=== PATIENT | male | born 1980 | race Caucasian/White ===

== ENCOUNTER 2024-07-06 09:34 | Emergency (ER) | payer SELFPAY ==
[2024-07-06 09:49] VITALS: BP 154/100; PULSE 115; RESP 18; TEMP 36.7; O2SAT 97; BMI 29.2
--- NOTE | 2024-07-06 09:59 | EXP.UTC ---
Discharge Plan Disposition Patient Disposition: Home, Self-Care Condition: Good Prescriptions Prescriptions: New sulfamethoxazole-trimethoprim [Bactrim DS] 800-160 mg tablet 1 tab PO Q12H Qty: 20 0RF No Action metformin 500 mg tablet 500 mg PO DAILY Patient Comments: TAKE 2 TABLETS ORAL ROUTE 2 TIMES PER DAY Referrals Follow up/Referrals: Provider,Referral, MD [Primary Care Provider] - See instructions Activity Restrictions/Add. Instructions Additional Instructions/Restrictions: Tylenol Motrin as needed for pain Antibiotics as ordered If symptoms worsen or do not improve return Clinical Impressions Clinical Impression: Abscess of gluteal region Instructions Patient Instructions: Boil Print Language Print Language: Japanese Discharge ED [facility]Jade [facility] [place] HPI General Stated complaint: knot on lowerback Mode of Arrival: Ambulatory Source of Information: Patient Time Seen by Provider: 07/06/24 09:52 Description of Symptoms (Recalled from Triage Doc. by RN): CYST, RED AND PAINFUL ON LEFT INNER BUTTCHEEK, HAS FELT FEVERISH AT HOME THE LAST COUPLE DAYS HEENT Symptoms (Recalled from RN notes): No Resp Symptoms (Recalled from RN notes): No Skin Symptoms (Recalled from RN notes): Yes MS Symptoms (Recalled from RN notes): No Functional Status (Recalled from RN notes): WNL History of Present Illness Provider Complaint: 44-year-old male presents for an abscess to the left inner butt cheek and felt feverish for couple days Related Data Home Medications ?Medication ?Instructions ?Recorded ?Confirmed metformin 500 mg tablet 500 mg PO DAILY 07/06/24 07/06/24 Previous Rx's ?Medication ?Instructions ?Recorded sulfamethoxazole 800 1 tab PO Q12H #20 tabs 07/06/24 mg-trimethoprim 160 mg tablet (Bactrim DS) Allergies Allergy/AdvReac Type Severity Reaction Status Date / Time No Known Allergies Allergy Verified 07/06/24 09:51 Worker's Comp Is this a Worker's Comp case?: No [facility] Disclaimer: The information contained in this section may have been updated after the patient was seen, as this information can be updated by other users. Social History (Reviewed 07/06/24 @ 10:00 by Jade Gallegos ([facility]), DIAGNOSTIC SALES SPECIALIST) Smoking Status: Unknown if ever smoked alcohol intake: former current occupational status: employed Travel in the last 8 weeks: None ROS Obtained: Yes Systems reviewed as appropriate & no additional complaints except as documented Integumentary/Breasts Skin/Breast: Reports system reviewed and no additional complaints, except as documented, Reports as per HPI and Reports other (Abscess) Physical Exam General General appearance: alert and in no apparent distress ENT ENT exam: Present normal exam Respiratory Respiratory exam: Present normal lung sounds bilaterally Cardiovascular Cardiovascular exam: Present regular rate and normal rhythm Neurological Exam Neurological exam: Present alert and oriented X3 Skin Skin exam: Present warm Expanded Skin Exam Body image: 1. Red golf ball size indurated area. No drainage or pus pocket present Medical Decision Making Medical Records Medical records reviewed: Yes I reviewed the patient's medical records. Screening: Per USPSTF and CDC recommendations, given the prevalence of disease in our region, it is our hospital?s policy to screen for HIV and viral Hepatitis for all patients aged 18 and over and those with ongoing risk factors. Jeremy Inquiry Pt receiving controlled substance: No Vital Signs: 07/06/24 09:49 Temperature 98.1 F Temperature Source Oral Pulse Rate [Left Radial] 115 H Respiratory Rate 18 Blood Pressure [Left Arm] 154/100 H Blood Pressure Mean [Left Arm] 118 02 Sat by Pulse Oximetry 97
[2024-07-06 10:11] VITALS: BP 154/100; PULSE 115; RESP 18; TEMP 36.7
== END 2024-07-06 10:11 | disposition home or self-care (01) ==
PROVIDERS: Emergency Provider Nurse Practitioner Family
DX: L02.31 Cutaneous abscess of buttock (principal)
CPT/HCPCS: 99212; G0381

== ENCOUNTER 2024-07-08 09:35 | Inpatient (IN) | payer SELFPAY ==
[2024-07-08] VITALS (23 sets, daily range): BP systolic 111–154; BP diastolic 64–87; PULSE 85–125; RESP 16–20; TEMP 36.6–37.5; O2SAT 93–100; BMI 29.0; BMI 28.3
--- NOTE | 2024-07-08 09:48 | CT_ITS ---
FINAL REPORT TECHNIQUE: IV contrast enhanced exam. Coronal and sagittal reconstructions obtained and reviewed. This study was performed with techniques to keep radiation doses as low as reasonably achievable, (ALARA). Individualized dose reduction techniques using automated exposure control or adjustment of mA and/or kV according to the patient''s size were employed. CLINICAL HISTORY: eval rectal abscess COMPARISON: none FINDINGS: Abdomen: No acute density is seen within the lung bases. Solid organs are negative. There is a punctate hyperdensity in the proximal posterior gallbladder seen on image 47 which could represent a tiny polyp or stone measuring 3 mm. There is no biliary ductal dilatation. The bowel is negative. There is no adenopathy. Pelvis: The appendix is normal. Pelvic bowel loops are unremarkable. The bladder is normal. There is a large posterior perianal abscess predominantly containing air. The abscess extends into both the right and left medial gluteus subcutaneous tissues. The air component measures approximately 66 x 50 x 47 mm. There is suggestion of a small fistulous tract extending from the posterior anus to the abscess well-seen on sagittal images 57 through 59 with a tract measuring up to 24 mm in length and 4 mm in diameter. IMPRESSION: Large predominantly gas-filled perianal abscess associated with fistulous tract as above. No intra-abdominal abnormality identified Reviewed, Interpreted and Dictated by Rochelle Mora MD Transcribed by Belen Jacobo Authenticated and [facility]
--- NOTE | 2024-07-08 09:53 | ED_ITS ---
Discharge Plan Disposition Patient Disposition: Admitted Chief Complaint: Skin/Abscess/Foreign Body Prescriptions Prescriptions: No Action metformin 500 mg tablet 500 mg PO DAILY Patient Comments: TAKE 2 TABLETS ORAL ROUTE 2 TIMES PER DAY sulfamethoxazole-trimethoprim [Bactrim DS] 800-160 mg tablet 1 tab PO Q12H Qty: 20 0RF Referrals Follow up/Referrals: Provider,Referral, [Primary Care Provider] - See instructions Clinical Impressions Clinical Impression: Abscess, perirectal Instructions Patient Instructions: DI for Skin Abscess Print Language Print Language: Togolese Discharge ED Provider: Jai Hatch General Adult HPI General Chief complaint: Skin/Abscess/Foreign Body Stated complaint: cyst on buttox, pain Time Seen by Provider: 07/08/24 09:41 Mode of Arrival: Ambulatory Source of Information: Patient Limitations: No Limitations History of Present Illness HPI narrative: This is a 44-year-old male who presents with rectal pain for the past week. Presented to urgent treatment center where patient was prescribed oral antibiotics -Bactrim. Has been taking as prescribed however is having worsening pain. States that he is having difficulty walking and sitting because of the pain. States that it feels like it is moving to the other side of his rectum. Reports subjective fever in the mornings and evenings. Related Data Home Medications ?Medication ?Instructions ?Recorded ?Confirmed metformin 500 mg tablet 500 mg PO DAILY 07/06/24 07/06/24 Previous Rx's ?Medication ?Instructions ?Recorded sulfamethoxazole 800 1 tab PO Q12H #20 tabs 07/06/24 mg-trimethoprim 160 mg tablet (Bactrim DS) Allergies Allergy/AdvReac Type Severity Reaction Status Date / Time No Known Allergies Allergy Verified 07/06/24 09:51 [facility] Disclaimer: The information contained in this section may have been updated after the patient was seen, as this information can be updated by other users. Social History (Updated 07/06/24 @ 10:05 by Jade Gallegos ([facility]), BLENDER/BRAZE APPLICATOR) Smoking Status: Former smoker alcohol intake: former current occupational status: employed Travel in the last 8 weeks: None Have you lived/traveled outside US in past 30 days?: No Contact w/someone who lives/traveled outside US past 30 days?: No Exposure to someone with infectious disease in past 14 days?: No Do you have a fever (greater than 100.4 F or 38 C)?: No Have you tested positive for COVID-19: No Exposed to someone with COVID-19 in past 14 days?: No Do you have a sore throat?: No Do you have a cough?: No Do you have any weakness?: No Do you have any diarrhea?: No Are you experiencing any unusual bleeding?: No Do you have any muscle aches/pain?: Yes Do you have any abdominal pain?: No Are you experiencing loss of taste or smell?: No ROS Obtained: Yes All systems reviewed & no additional complaints except as documented Physical Exam General General appearance: alert and in no apparent distress Eye Eye exam: Present normal appearance, PERRL and EOMI Respiratory Respiratory exam: Present normal lung sounds bilaterally; Absent respiratory distress Cardiovascular Cardiovascular exam: Present regular rate and normal rhythm Abdominal Exam Abdominal exam: Present soft and distention; Absent tenderness, guarding or rebound Expanded Exam Comment: Extensive induration and, fluctuance, erythema to the perirectal region Extremities Exam Extremities exam: Present normal inspection Neurological Exam Neurological exam: Present alert and oriented X3 Skin Skin exam: Present warm and dry Medical Decision Making Medical Records Medical records reviewed: Yes I reviewed the patient's medical records. Screening: Per USPSTF and CDC recommendations, given the prevalence of disease in our region, it is our hospital?s policy to screen for HIV and viral Hepatitis for all patients aged 18 and over and those with ongoing risk factors. MR Comment: Urgent treatment center note from 07/06/2024 notable for presentation as noted above and prescription for Bactrim Jeremy Inquiry Pt receiving controlled substance: No Vital Signs: 07/08/24 09:37 07/08/24 09:41 07/08/24 10:40 Temperature 98.3 F Temperature Source Oral Pulse Rate 125 H 106 H Pulse Rate [Right] 85 Respiratory Rate 18 Blood Pressure 145/84 H 128/64 Blood Pressure [Right Arm] 145/84 H Blood Pressure Mean [Right Arm] 104 Blood Pressure Source [Right Arm] Automatic Cuff 02 Sat by Pulse Oximetry 98 96 97 Oxygen Delivery Method Room Air Room Air Room Air 07/08/24 11:00 Temperature Temperature Source Pulse Rate 107 H Pulse Rate [Right] Respiratory Rate Blood Pressure 122/75 Blood Pressure [Right Arm] Blood Pressure Mean [Right Arm] Blood Pressure Source [Right Arm] 02 Sat by Pulse Oximetry 96 Oxygen Delivery Method Room Air Lab Data Lab Results 07/08/24 09:55: WBC 16.3 H, RBC 5.67, Hgb 15.9, Hct 46.0, MCV 81.1, MCH 28.0, MCHC 34.6, RDW 12.0, Plt Count 216, MPV 9.9, Neut % (Auto) 81.1 H, Lymph % (Auto) 6.6 L, [place] % (Auto) 10.8 H, Eos % (Auto) 0.2, Baso % (Auto) 0.6, Neut # (Auto) 13.2 H, Lymph # (Auto) 1.1, [place] # (Auto) 1.8 H, Eos # (Auto) 0.0, Baso # (Auto) 0.1, PT 11.1, INR 0.99, Sodium 132 L, Potassium 4.6, Chloride 94 L, Carbon Dioxide 25, Anion Gap 17.6 H, BUN 18, Creatinine 0.80, Estimated Creat Clear 165, Estimated GFR 105, Est GFR ( Amer) 126, Glucose 349 H, Calcium 9.6, Total Bilirubin 3.3 H, AST 27, ALT 27, Alkaline Phosphatase 124, C-Reactive Protein 293.5 H, Total Protein 8.1, Albumin 4.5, Globulin 3.6 H, Albumin/Globulin Ratio 1.3 07/08/24 09:55 07/08/24 09:55 Orders (Tests/Meds): ED MEDICATIONS Generic Name Dose Route Start Last Admin Trade Name Freq PRN Reason Stop Dose Admin Vancomycin/PEG/NADA/Lysine/Water 1.75 gm in 350 mls @ 175 mls/hr 07/08/24 10:45 Vancomycin 1.75gm/350ml (Peg) Premix IV 07/08/24 12:44 ONCE ONE Ondansetron HCl 4 mg 07/08/24 11:14 07/08/24 11:18 Ondansetron 4mg/2ml Vial IV 07/08/24 11:15 4 mg ONCE ONE Administration Sodium Chloride 10 ml 07/08/24 10:13 07/08/24 10:14 Sodium Chloride 0.9% 10ml Syr (Rad Only) IV 08/07/24 10:12 10 ml NEEDED PRN Administration Maintain IV Site Discontinued Medications Generic Name Dose Route Start Last Admin Trade Name Freq PRN Reason Stop Dose Admin Acetaminophen 1,000 mg 07/08/24 09:47 07/08/24 10:05 Acetaminophen 500mg Tab PO 07/08/24 09:48 Not Given ONCE ONE Hydromorphone HCl 1 mg 07/08/24 09:47 07/08/24 10:04 Hydromorphone 2mg/Ml Syringe IV 07/08/24 09:48 1 mg ONCE ONE Administration Piperacillin Sod/Tazobactam 100 mls @ 200 mls/hr 07/08/24 10:37 07/08/24 11:24 Sod 4.5 gm/ Sodium Chloride IV 07/08/24 11:06 200 mls/hr ONCE ONE Administration Clindamycin Phosphate 600 mg in 50 mls @ 100 mls/hr 07/08/24 10:37 Clindamycin 600mg/50ml D5w Premix IV 07/08/24 11:06 ONCE ONE Iopamidol 75 ml 07/08/24 10:13 07/08/24 10:14 Iopamidol-370 (76%);100ml Bottle IV 07/08/24 10:14 75 ml ONCE ONE Administration Miscellaneous 1 each 07/08/24 10:45 Vancomycin Consult Request NOTAPPLIC 08/07/24 10:44 CONSULT PHARMACY KIM ORDERS Category Date Time Status CT abdomen pelvis w con Stat Cat Scan 07/08/24 09:48 Completed CBC w/Auto Diff [Complete Blood Count Auto Diff] Stat Lab 07/08/24 09:55 Results CMP [Comprehensive Metabolic Panel] Stat Lab 07/08/24 09:55 Completed CRP [C-Reactive Protein] Stat Lab 07/08/24 09:55 Completed HIV Combo Stat Lab 07/08/24 09:55 Received Hepatitis C Ab Qual. W/ RFX Stat Lab 07/08/24 09:55 Received PT INR [Prothrombin Time INR] Stat Lab 07/08/24 09:55 Completed Blood Culture Stat Micro 07/08/24 10:06 Received Medical Decision Narrative: In summary, this 44-year-old male presents to the emergency department today with rectal pain and swelling for the past week. On initial evaluation patient is afebrile, hemodynamically stable, nontoxic-appearing. Differential diagnosis includes but is not limited to pilonidal cyst, abscess, perirectal abscess. High concern for perirectal/rectal abscess based on exam. Based on these concerns, I ordered CBC, CMP, CT abdomen pelvis with IV contrast, blood cultures. Patient received Dilaudid for treatment. Labs personally reviewed demonstrate white blood cell count of 16.3, glucose 349. CT imaging personally interpreted demonstrates extensive perirectal abscess with subcutaneous emphysema. Radiology report notes a fistulous connection. Covered patient from a NSTI standpoint with vancomycin, clindamycin, and Zosyn. Added on CRP and INR. CRP of 293 and INR of 0.99. Consulted general surgery who stated that patient would be appropriate for admission with IV antibiotics and to remain n.p.o. for possible OR today. Consulted hospital medicine who accepted the patient for admission. Critical Care Critical Care Time Critical Care Time: No
[2024-07-08] MEDS: HYDROMORPHONE 2MG/ML SYRINGE 1 MG IV (10:04)
[2024-07-08 10:05] LABS: Basophils # 0.1 K/mm3 (0-0.2); Basophils % 0.6 % (0.1-2.0); Eosinophils % 0.2 % (0.1-12.0); Hemoglobin 15.9 g/dL (14.1-18.0); Lymphocytes # 1.1 K/mm3 (0.7-4.5); Lymphocytes % 6.6 % (10-50); Mean Corpuscular HGB Conc 34.6 g/dL (31.8-35.4); Mean Corpuscular Volume 81.1 fl (80-94); Mean Platelet Volume 9.9 fl (7.4-10.4); Monocytes # 1.8 K/mm3 (0.1-1.0); Monocytes % 10.8 % (1.7-9.3); Neutrophils # 13.2 K/mm3 (1.8-7.8); Neutrophils % 81.1 % (37.0-80.0); Platelet Count 216 K/mm3 (142-424); Red Blood Count 5.67 M/mm3 (4.60-6.20); White Blood Count 16.3 K/mm3 (4.8-10.8)
--- NOTE | 2024-07-08 10:07 | PC.NURSE ---
second blood culture sent to lab; blue band placed on left wrist
--- NOTE | 2024-07-08 10:08 | PC.NURSE ---
pt to radiology with ophthalmic tech
[2024-07-08 10:10] LABS: Chloride 94 mmol/L (98-107)
[2024-07-08 10:11] LABS: Albumin Level 4.5 g/dl (3.5-5.0); Potassium 4.6 mmoL/L (3.5-5.1); Sodium 132 mmol/L (136-145)
--- NOTE | 2024-07-08 10:11 | PC.NURSE ---
Spouse at BS
[2024-07-08 10:13] LABS: Alanine Aminotransferase 27 U/L (12-78); Anion Gap 17.6 mEq/L (5-15); Aspartate Amino Transferase 27 U/L (17-59); Blood Urea Nitrogen 18 mg/dl (9-20); Carbon Dioxide 25 mmol/L (22.0-30.0); Creatinine Clearance Estimated 165 mL/min (50-200); Estimated Glomerular Filt Rate 105 ml/min (>60); GFR (African American) 126 ML/MIN (>60)
[2024-07-08 10:14] LABS: Albumin/Globulin Ratio 1.3 (1.1-1.8); Alkaline Phosphatase 124 U/L (38-126); Bilirubin,Total 3.3 mg/dl (0.2-1.3); Calcium 9.6 mg/dl (8.4-10.2); Globulin 3.6 g/dL (1.3-3.2); Glucose 349 mg/dl (74-100); Total Protein,Serum 8.1 g/dl (6.3-8.2)
[2024-07-08] MEDS: IOPAMIDOL-370 (76%);100ML BOTTLE 75 ML IV (10:14)
[2024-07-08] MEDS: SODIUM CHLORIDE 0.9% 10ML SYR (RAD ONLY) 10 ML IV (10:14)
[2024-07-08 10:17] LABS: MANUAL DIFFERENTIAL MANUAL DIFFERENTIAL (MANUAL DIFF)
[2024-07-08 10:54] LABS: C-Reactive Protein 293.5 mg/L (0-4)
[2024-07-08 11:04] LABS: INR 0.99 (0.9-1.1); Prothrombin Time 11.1 seconds (10.1-12.5)
[2024-07-08] MEDS: ONDANSETRON 4MG/2ML VIAL 4 MG IV ×2 (11:18→23:00)
--- NOTE | 2024-07-08 11:21 | PC.NURSE ---
Dr. Grant at BS
[2024-07-08] MEDS: PIPERACILLIN/TAZO 4.5 GM in 0.9 % SODIUM CHLORIDE 100 ML IV (11:24)
--- NOTE | 2024-07-08 11:30 | PC.NURSE ---
spoke with dimension warehouse supervisor for bed assignment, pt being admitted per hospitalist
[2024-07-08 11:33] LABS: Lymphocytes % 14 % (10-50); Monocytes % 4 % (2-9); Neutrophils % 82 % (42-76); Platelet Estimate Normal; RBC Morphology Normal; Total Cells Counted 100
[2024-07-08 11:39] LABS: HIV Combo NEGATIVE (Negative)
[2024-07-08 11:46] LABS: Hepatitis C Ab Qual. W/ RFX NEGATIVE (Negative)
[2024-07-08] MEDS: CLINDAMYCIN PHOSPHATE/D5W 600 MG/50 ML PIGGYBACK 100 MG IV (11:48)
--- NOTE | 2024-07-08 11:56 | PC.NURSE ---
Gave report to Brie SMITH on med surg
--- NOTE | 2024-07-08 12:00 | PC.NURSE ---
pt going to surgery.
--- NOTE | 2024-07-08 12:03 | PC.NURSE ---
Pt taken by surgery staff to OR
--- NOTE | 2024-07-08 12:04 | EXP.SURG.CON ---
History of Present Illness *Admission Date: 07/08/24 *Reason for visit:: Abscess *History of present illness: Patient is a 44-year-old diabetic male. He states that over the past week he has had a tender nodule in the left perianal location. Became progressively more severe and he was seen in the [facility] on 07/06/2024 and was started on oral antibiotics. However he had significant progression and presented to the emergency department today. He was found to have findings consistent with significant perirectal abscess. He had some sepsis criteria with mild tachycardia and leukocytosis. CT scan was performed which revealed a large predominantly gas-filled perianal abscess with possible fistulous tract. Surgical consultation was obtained [facility] Disclaimer: The information contained in this section may have been updated after the patient was seen, as this information can be updated by other users. Social History (Updated 07/06/24 @ 10:05 by Jade Gallegos ([facility]), RES COUNSELOR) Smoking Status: Former smoker alcohol intake: former current occupational status: employed Travel in the last 8 weeks: None Have you lived/traveled outside US in past 30 days?: No Contact w/someone who lives/traveled outside US past 30 days?: No Exposure to someone with infectious disease in past 14 days?: No Do you have a fever (greater than 100.4 F or 38 C)?: No Have you tested positive for COVID-19: No Exposed to someone with COVID-19 in past 14 days?: No Do you have a sore throat?: No Do you have a cough?: No Do you have any weakness?: No Do you have any diarrhea?: No Are you experiencing any unusual bleeding?: No Do you have any muscle aches/pain?: Yes Do you have any abdominal pain?: No Are you experiencing loss of taste or smell?: No Meds Home Medications and Allergies Home Medications ?Medication ?Instructions ?Recorded ?Confirmed ?Type metformin 500 mg tablet 500 mg PO DAILY 07/06/24 07/06/24 History sulfamethoxazole 800 1 tab PO Q12H #20 tabs 07/06/24 Rx mg-trimethoprim 160 mg tablet (Bactrim DS) New Prescriptions to Start Prescriptions: Allergies Allergy/AdvReac Type Severity Reaction Status Date / Time No Known Allergies Allergy Verified 07/06/24 09:51 Exam (Inpt) Vital signs and Labs for Last 24 Hours: Temp Pulse Resp BP Pulse Ox O2 Del Method 98.6 F 102 H 20 128/79 96 Room Air 07/08/24 11:51 07/08/24 11:51 07/08/24 11:51 07/08/24 11:51 07/08/24 11:00 07/08/24 11:51 Laboratory Results - last 24 hr 07/08/24 09:55: WBC 16.3 H, RBC 5.67, Hgb 15.9, Hct 46.0, MCV 81.1, MCH 28.0, MCHC 34.6, RDW 12.0, Plt Count 216, MPV 9.9, Neut % (Auto) 81.1 H, Lymph % (Auto) 6.6 L, [place] % (Auto) 10.8 H, Eos % (Auto) 0.2, Baso % (Auto) 0.6, Neut # (Auto) 13.2 H, Lymph # (Auto) 1.1, [place] # (Auto) 1.8 H, Eos # (Auto) 0.0, Baso # (Auto) 0.1, Total Counted 100, Neutrophils % (Manual) 82 H, Lymphocytes % (Manual) 14, Monocytes % (Manual) 4, Platelet Estimate Normal, RBC Morphology Normal, PT 11.1, INR 0.99, Sodium 132 L, Potassium 4.6, Chloride 94 L, Carbon Dioxide 25, Anion Gap 17.6 H, BUN 18, Creatinine 0.80, Estimated Creat Clear 165, Estimated GFR 105, Est GFR ( Amer) 126, Glucose 349 H, Calcium 9.6, Total Bilirubin 3.3 H, AST 27, ALT 27, Alkaline Phosphatase 124, C-Reactive Protein 293.5 H, Total Protein 8.1, Albumin 4.5, Globulin 3.6 H, Albumin/Globulin Ratio 1.3, HCV Ab TAHIR w/Rflx PCR Qn Negative, HIV Ag/Ab Combo Qual Negative I & O for Labs for Last 24 Hours: Intake & Output 07/06/24 07/07/24 07/08/24 07/09/24 11:59 11:59 11:59 11:59 Weight 220 lb Constitutional: no acute distress Head: Present normocephalic Neck: Present normal inspection Respiratory: Present CTA bilaterally Cardiac: Present Reg Rate and Rhythm GI: Present soft Comments:: Patient has significant swelling with erythema and induration in the left lateral perianal location with some tissue necrosis. Rectal (male): Present deferred Results Labs 07/08/24 09:55 07/08/24 09:55 Labs: Laboratory Results - last 24 hr 07/08/24 09:55: WBC 16.3 H, RBC 5.67, Hgb 15.9, Hct 46.0, MCV 81.1, MCH 28.0, MCHC 34.6, RDW 12.0, Plt Count 216, MPV 9.9, Neut % (Auto) 81.1 H, Lymph % (Auto) 6.6 L, [place] % (Auto) 10.8 H, Eos % (Auto) 0.2, Baso % (Auto) 0.6, Neut # (Auto) 13.2 H, Lymph # (Auto) 1.1, [place] # (Auto) 1.8 H, Eos # (Auto) 0.0, Baso # (Auto) 0.1, Total Counted 100, Neutrophils % (Manual) 82 H, Lymphocytes % (Manual) 14, Monocytes % (Manual) 4, Platelet Estimate Normal, RBC Morphology Normal, PT 11.1, INR 0.99, Sodium 132 L, Potassium 4.6, Chloride 94 L, Carbon Dioxide 25, Anion Gap 17.6 H, BUN 18, Creatinine 0.80, Estimated Creat Clear 165, Estimated GFR 105, Est GFR ( Amer) 126, Glucose 349 H, Calcium 9.6, Total Bilirubin 3.3 H, AST 27, ALT 27, Alkaline Phosphatase 124, C-Reactive Protein 293.5 H, Total Protein 8.1, Albumin 4.5, Globulin 3.6 H, Albumin/Globulin Ratio 1.3, HCV Ab TAHIR w/Rflx PCR Qn Negative, HIV Ag/Ab Combo Qual Negative Assessment and Plan *Assessment and plan (1) Abscess, perirectal: Status: Acute Category: Medical Code(s): K61.1 - Rectal abscess Plan Plan for emergent incision and drainage possible debridement and possible seton placement if indicated although this seems less likely at this juncture.
--- NOTE | 2024-07-08 12:11 | P.PNANES_ITS ---
[facility] Disclaimer: The information contained in this section may have been updated after the patient was seen, as this information can be updated by other users. Social History (Updated 07/06/24 @ 10:05 by Jade Gallegos ([facility]), [employer]ANAU SUPPORT WORKER) Smoking Status: Former smoker alcohol intake: former substance use type: denies use current occupational status: employed Travel in the last 8 weeks: None [facility] Anesthesia Checklist Patient Identification Patient Identification: Arm Band Structural Data Admitted From: Emergency Dept Planned Operative Procedure/s: I&D Perirectal Abscess Consent for Planned Operative Procedure(s) Verified: Yes Verified Documents: Surgical Consent and History and Physical NPO Status Verified Time NPO: 00:00 Additional verifications Anesthesia Reactions: No Airway Assessment Mallampati Score:: Class II C-Spine Mobility Assessed: Yes TMJ Mobility Assessed: Yes Dentition: Good Dentition Neurological Assessment Level of Consciousness: Awake, Alert and Appropriate Anesthesia Plan Anesthesia Risk discussed: Yes Anesthesia Plan: Verified ASA Class: II Anesthesia Type: General
[2024-07-08] MEDS: AMPICILLIN SODIUM/SULBACTAM 3 GM in 0.9 % SODIUM CHLORIDE 100 ML IV (12:30)
[2024-07-08] MEDS: ROPIVACAINE 0.5% 30ML VIAL 150 MG (12:48)
[2024-07-08] MEDS: LIDOCAINE 1% 20ML MDV 20 ML (12:48)
--- NOTE | 2024-07-08 13:20 | EXP.OP.NOTE ---
Date of procedure: 07/08/24 Pre-op Diagnosis:: Perirectal abscess Post-op Diagnosis:: Same Procedure performed:: Incision and drainage complex infra levator perirectal abscess with debridement of skin, subcutaneous tissues, some muscle Surgeon:: Ricardo Grant MD SUBSORTER:: Alvino Olvera Anesthesia: LMA Estimated blood loss (mL): 20 Clinical Note:: Patient is a 44-year-old diabetic male. He states that over the past week he has had a tender nodule in the left perianal location. Became progressively more severe and he was seen in the [facility] on 07/06/2024 and was started on oral antibiotics. However he had significant progression and presented to the emergency department today. He was found to have findings consistent with significant perirectal abscess. He had some sepsis criteria with mild tachycardia and leukocytosis. CT scan was performed which revealed a large predominantly gas-filled perianal abscess with possible fistulous tract. Surgical consultation was obtained. Patient was seen and examined in the emergency department. He was found to have evidence of significant soft tissue infection of the left posterior lateral perianal and gluteal location with evidence of tissue necrosis. Arrangements were made for emergent incision and drainage and debridement. . Operative findings:: Patient had a large necrotic abscess in the left posterior lateral location with full-thickness necrosis. He contain mostly gas. However there was evidence of liquefied necrosis of the overlying skin with some underlying subcutaneous tissue and limited muscle. There was some tracking towards the anal area, unclear if this was true fistula. Operative note:: Consent was obtained patient was taken to the operating room. Anesthesia was induced via LMA. He was positioned in right lateral decubitus position. The area was prepped and draped in the standard surgical fashion. There was evidence of foul-smelling necrosis of the tissues. It was quite fluctuant. Incision was made with electrocautery. Gas exuded from the soft tissues. There was some purulence. Cultures were sent. Obvious overlying tissues with full-thickness necrosis were debrided using electrocautery. There was underlying liquefied necrosis of some of the subcutaneous tissues. The wound was extended where there was undermining posterior laterally to allow for evacuation. There was some tunneling towards the anus. Moderately aggressive debridement was carried out of obviously necrotic tissues using electrocautery including skin, subcutaneous tissue, and limited muscle. Hemostasis was achieved with electrocautery. The wound was then irrigated with 3 L pulsatile saline irrigation using the InterPulse device. Local anesthetic was infiltrated. Wound was packed with a dry Kerlix and covered with clean dry sterile dressing. . Condition: stable Disposition: PACU Complications:: None immediately apparent
--- NOTE | 2024-07-08 13:28 | EXP.ANES.I ---
[facility] Anesthesia Record Part I Anesthesia Record I Intake, IV Amount: 900 Hydration: Adequate Estimated blood loss (mL): 10 Urine output (mL): 0 Blood Products used (#): none Blood Pressure: 111/77 SaO2: 94 Pulse Rate: 112 Airway Patency: Patent Respiratory Rate: 16 Temperature: 99.5 F Patient is:: Drowsy and Stable Stable to PACU at:: 13:20
--- NOTE | 2024-07-08 14:38 | P.PNANES_ITS ---
[facility] Anesthesia Record Part II Anesthesia Record Part II Discharge Time: 13:50 Destination: Surgical Day Care (OP Surgery) PACU nurse assessment reviewed?: Yes Patient Condition:: Good Anesthesia Complications:: None Swallowing reflex intact?: Yes Airway Patency: Patent Cyanosis?: No Blood Pressure: 123/83 SaO2: 96 Respiratory Rate: 18 Pulse Rate: 107 Temperature: 99.5 F Mental Status: Alert & Oriented Pain level:: 0 Nausea and/or vomitting:: None and Nauseated Intake, IV Amount: 0 Hydration: Adequate
--- NOTE | 2024-07-08 14:43 | PC.NURSE ---
pt in a non weigh bed after surgery. pt stated estimated weight.
--- NOTE | 2024-07-08 15:12 | HMH.PHAINT1 ---
Pharmacy Intervention Comments: MEDICATION RECONCILIATION COMPLETED ON PATIENT USING UTC NOTE TWO DAYS PRIOR TO ADMISSION. -HARSH VILLEGASD
[2024-07-08] MEDS: VANCOMYCIN/WATER FOR INJ (PEG) 1.75 GM/350 ML PIGGYBACK IV (16:07)
[2024-07-08] MEDS: ACETAMINOPHEN 325MG TAB 650 MG PO (17:29)
--- NOTE | 2024-07-08 18:18 | PC.NURSE ---
Patient is a new admit from OR for the I&D of perianal abscess. IV abx and pain management
[2024-07-08] MEDS: HYDROCODONE/APAP 5/325 MG TABLET 2 TAB PO (19:27)
[2024-07-08 21:08] LABS: Glucose,Random 488 mg/dL (74-100)
[2024-07-08] MEDS: humaLOG 100 UNITS/ML 10ML VIAL (SSI) SUBCUT (21:21)
[2024-07-08] MEDS: INSULIN GLARGINE 100 UNITS/ML 10ML VIAL 10 UNIT SUBCUT (21:22)
--- NOTE | 2024-07-08 21:44 | P.HP_ITS ---
History of Present Illness *Admission Date: 07/08/24 *History of present illness: Adapted from general surgery note: Patient is a 44-year-old diabetic male. He states that over the past week he has had a tender nodule in the left perianal location. Became progressively more severe and he was seen in the [facility] on 07/06/2024 and was started on oral antibiotics. However he had significant progression and presented to the emergency department today. He was found to have findings consistent with significant perirectal abscess. He had some sepsis criteria with mild tachycardia and leukocytosis. CT scan was performed which revealed a large predominantly gas-filled perianal abscess with possible fistulous tract. General surgery consulted, s/p I&D and debridement. Case discussed with ED provider and decision was made to admit patient for sepsis secondary to perirectal abscess and uncontrolled diabetes. [facility] Disclaimer: The information contained in this section may have been updated after the pat ient was seen, as this information can be updated by other users. Medical History (Updated 07/09/24 @ 13:46 by Nic Joaquin MD) Alcohol abuse Drug abuse in remission Diabetes mellitus Surgical History (Updated 07/08/24 @ 15:44 by Brie Mckenna RN) Status post incision and drainage Social History (Updated 07/08/24 @ 14:34 by Brie Mckenna RN) Smoking Status: Former smoker alcohol intake: former substance use type: denies use current occupational status: employed Travel in the last 8 weeks: None adopted: No caregiver/support person: No foster care: No household members: spouse and children Have you lived/traveled outside US in past 30 days?: No Contact w/someone who lives/traveled outside US past 30 days?: No Exposure to someone with infectious disease in past 14 days?: No Do you have a fever (greater than 100.4 F or 38 C)?: No Have you tested positive for COVID-19: No Exposed to someone with COVID-19 in past 14 days?: No Do you have a sore throat?: No Do you have a cough?: No Do you have any weakness?: No Do you have any diarrhea?: No Are you experiencing any unusual bleeding?: No Do you have any muscle aches/pain?: Yes Do you have any abdominal pain?: No Are you experiencing loss of taste or smell?: No Other Medical History Have you received the Flu Vaccine for this season: No (agrees to have one while admitted if applicable) Have you received the Pneumonia Vaccine: No Meds Home Medications and Allergies Home Medications ?Medication ?Instructions ?Recorded ?Confirmed ?Type sulfamethoxazole 800 1 tab PO Q12H #20 tabs 07/06/24 07/09/24 Rx mg-trimethoprim 160 mg tablet (Bactrim DS) metformin 500 mg tablet 1,000 mg PO BIDWMEAL 07/08/24 07/08/24 History New Prescriptions to Start Prescriptions: Allergies Allergy/AdvReac Type Severity Reaction Status Date / Time No Known Allergies Allergy Verified 07/06/24 09:51 Exam Data for Last 24 hours Vital signs and Labs for Last 24 Hours: Temp Pulse Resp BP Pulse Ox O2 Del Method 99.5 F 105 H 16 146/84 H 99 Room Air 07/08/24 13:50 07/08/24 18:48 07/08/24 18:48 07/08/24 18:48 07/08/24 18:48 07/08/24 18:48 Laboratory Results - last 24 hr 07/08/24 09:55: WBC 16.3 H, RBC 5.67, Hgb 15.9, Hct 46.0, MCV 81.1, MCH 28.0, MCHC 34.6, RDW 12.0, Plt Count 216, MPV 9.9, Neut % (Auto) 81.1 H, Lymph % (Auto) 6.6 L, [place] % (Auto) 10.8 H, Eos % (Auto) 0.2, Baso % (Auto) 0.6, Neut # (Auto) 13.2 H, Lymph # (Auto) 1.1, [place] # (Auto) 1.8 H, Eos # (Auto) 0.0, Baso # (Auto) 0.1, Total Counted 100, Neutrophils % (Manual) 82 H, Lymphocytes % (Manual) 14, Monocytes % (Manual) 4, Platelet Estimate Normal, RBC Morphology Normal, PT 11.1, INR 0.99, Sodium 132 L, Potassium 4.6, Chloride 94 L, Carbon Dioxide 25, Anion Gap 17.6 H, BUN 18, Creatinine 0.80, Estimated Creat Clear 165, Estimated GFR 105, Est GFR ( Amer) 126, Glucose 349 H, Calcium 9.6, Total Bilirubin 3.3 H, AST 27, ALT 27, Alkaline Phosphatase 124, C-Reactive Protein 293.5 H, Total Protein 8.1, Albumin 4.5, Globulin 3.6 H, Albumin/Globulin Ratio 1.3, HCV Ab TAHIR w/Rflx PCR Qn Negative, HIV Ag/Ab Combo Qual Negative 07/08/24 20:40: Random Glucose 488 H* I & O for Last 24 hours: Intake & Output 07/05/24 07/06/24 07/07/24 07/08/24 23:59 23:59 23:59 23:59 Intake Total 1380 / 1380 Balance 1380 / 1380 Weight 97.522 kg Constitutional Constitutional: no acute distress *Routine HEENT Exam Head: Present normocephalic Eye: Present EOMI and PERRL ENT: Present mucous membranes moist *Routine Neck Exam Neck: Present supple; Absent lymphadenopathy *Routine Respiratory Exam Respiratory: Present CTA bilaterally *Routine Cardiovascular Exam Cardiovascular: Present RRR *Routine Abdominal Exam Abdominal: Present soft and normoactive bowel sounds; Absent tenderness *Routine Rectal Exam Rectal:: other Comments:: Rectal area with dressing and no seepage. *Routine Genitalia Exam Genitalia:: deferred *Routine Extremities Exam Extremities: Absent cyanosis, clubbing or edema *Routine Skin Exam Skin: Present warm; Absent rash *Routine Neurological Exam Neurological: Present alert and oriented X3 Assessment and Plan *Assessment and plan (1) Abscess, perirectal: Problem Comment: Improving after debridement and drainage, I would continue dressing changes. Recommend tight control of his glucose as this is the primary cause of the perirectal abscess. Status: Acute Category: Medical Code(s): K61.1 - Rectal abscess (2) Sepsis: Status: Acute Category: Medical Code(s): A41.9 - Sepsis, unspecified organism (3) Uncontrolled diabetes mellitus: Status: Acute Category: Medical Plan Juan Zuleta is a 44-year-old male with a medical history significant for uncontrolled diabetes who was admitted for sepsis secondary to perirectal abscess with fistula s/p I&D and debridement with general surgery. #Sepsis #Perirectal abscess with fistula - General sugery consulted, s/p I&D and debridement of necrotic skin 07/08/2024. Assisting with care. - No known history of IBD, however does have intermittent abdominal pains. No rectal bleeding. ? At this time, perirectal abscess with fistulization likely secondary to uncontrolled diabetes. ? Initial WBC 16.3, with tachycardia. ? Continue vancomycin, Zosyn day 1 pending cultures. ? Follow up surgical and blood cultures. #Uncontrolled type 2 diabetes ? Follow-up A1c. BLood sugars in the 400s. ? Lantus 10 units nightly. ? LDSSI, ACHS glucose checks. Full code Lovenox 40 mg
[2024-07-08] MEDS: PIPERCILLIN/TAZO 3.375 GM in 0.9 % SODIUM CHLORIDE 50 ML IV (22:14)
[2024-07-09] VITALS: BP 117/62; PULSE 85; RESP 16; TEMP 37.1; O2SAT 97
[2024-07-09] MEDS: HYDROCODONE/APAP 5/325 MG TABLET 2 TAB PO (03:47)
[2024-07-09 04:00] VITALS: BP 102/47; PULSE 90; RESP 16; TEMP 36.7; O2SAT 96; BMI 28.8
--- NOTE | 2024-07-09 05:29 | PC.NURSE ---
Pt has remained A&OX4 and has tolerated room air. Lung sounds clear and bowel sounds active. Dressing over I&D site is c/d/i. Pt has complained of abdominal pain twice this shift and was medicated per AUG. He has ambulated to the bathroom independently. No complaints at this time, call light within reach.
[2024-07-09] MEDS: ONDANSETRON 4MG/2ML VIAL 4 MG IV (06:02)
[2024-07-09] MEDS: PIPERCILLIN/TAZO 3.375 GM in 0.9 % SODIUM CHLORIDE 50 ML IV ×3 (06:07→22:14)
[2024-07-09] MEDS: humaLOG 100 UNITS/ML 10ML VIAL (SSI) SUBCUT ×4 (06:07→20:05)
[2024-07-09 06:20] LABS: POC Glucose,Bedside 263 (70-110)
[2024-07-09 07:58] VITALS: BP 111/66; PULSE 86; RESP 18; TEMP 37.7; O2SAT 97
--- NOTE | 2024-07-09 08:05 | P.CONPHA_ITS ---
Pharmacy Consult Date: 07/09/24 Time: 08:06 Referring provider: DR LOGAN Reason for Consult:: VANCOMYCIN DOSING CONSULT Allergies Allergy/AdvReac Type Severity Reaction Status Date / Time No Known Allergies Allergy Verified 07/06/24 09:51 Home Medications ?Medication ?Instructions ?Recorded ?Confirmed ?Type sulfamethoxazole 800 1 tab PO Q12H #20 tabs 07/06/24 07/08/24 Rx mg-trimethoprim 160 mg tablet (Bactrim DS) metformin 500 mg tablet 1,000 mg PO BIDWMEAL 07/08/24 07/08/24 History New Prescriptions to Start Prescriptions: Height: 1.85 m Weight: 98.883 kg Laboratory Results:: Laboratory Results - last 24 hr 07/08/24 09:55: WBC 16.3 H, RBC 5.67, Hgb 15.9, Hct 46.0, MCV 81.1, MCH 28.0, MCHC 34.6, RDW 12.0, Plt Count 216, MPV 9.9, Neut % (Auto) 81.1 H, Lymph % (Auto) 6.6 L, [place] % (Auto) 10.8 H, Eos % (Auto) 0.2, Baso % (Auto) 0.6, Neut # (Auto) 13.2 H, Lymph # (Auto) 1.1, [place] # (Auto) 1.8 H, Eos # (Auto) 0.0, Baso # (Auto) 0.1, Total Counted 100, Neutrophils % (Manual) 82 H, Lymphocytes % (Manual) 14, Monocytes % (Manual) 4, Platelet Estimate Normal, RBC Morphology Normal, PT 11.1, INR 0.99, Sodium 132 L, Potassium 4.6, Chloride 94 L, Carbon Dioxide 25, Anion Gap 17.6 H, BUN 18, Creatinine 0.80, Estimated Creat Clear 165, Estimated GFR 105, Est GFR ( Amer) 126, Glucose 349 H, Calcium 9.6, Total Bilirubin 3.3 H, AST 27, ALT 27, Alkaline Phosphatase 124, C-Reactive Protein 293.5 H, Total Protein 8.1, Albumin 4.5, Globulin 3.6 H, Albumin/Globulin Ratio 1.3, HCV Ab TAHIR w/Rflx PCR Qn Negative, HIV Ag/Ab Combo Qual Negative 07/08/24 20:40: Random Glucose 488 H* 07/09/24 06:06: POC Glucose 263 H Medical History: Medical History (Updated 07/08/24 @ 15:43 by Brie Mckenna RN) Alcohol abuse Drug abuse in remission Diabetes mellitus Assessment and Plan Assessment and plan all Dx Assessment and Plan for all problems:: Pharmacokinetic dosing service Objective: Age: 44 yo Serum creatinine: 0.8 mg/dL Height: 72.8 Inches Weight (kg): 98.883 Diagnosis: ABSCESS Assessment: IBW (kg): 79.44 Dosing wt(kg): 98.883 Estimated Creatinine clearance (ml/min): 130 Clearance limited to 130 ml/min to reduce risk of overdosing. CRCL method: Cockcroft and Gault using ibw(default). Drug selected: Vancomycin Vd (liters): 69.2 (factor used: 0.7 L/kg) Alonzo (hr-1): 0.112 Half life (hrs): 6.19 CLvanco=?? 7.750 L/hr Recommended dose: 2000 mg Interval: 12 hrs Infusion time (hrs): 2.0 Predicted peak (mcg/mL): 35.0 Predicted trough (mcg/mL): 11.42 Total body weight is being used for vancomycin dosing. Recommendations: Give Vancomycin 2000 mg q 12 hrs with an expected Cpeak of 35.0 mcg/ml and an expected Ctrough of 11.42 mcg/ml AUC 0-24 /ERROL Data: ERROL 0.5 mcg/mL:?? AUC/ERROL:? 1032.3 ERROL 1.0 mcg/mL:?? AUC/ERROL:? 516.1 --------- ERROL 1.5 mcg/mL:?? AUC/ERROL:? 344.1 ERROL 2.0 mcg/mL:?? AUC/ERROL:? 258.1 Thank you for the consult
--- NOTE | 2024-07-09 08:09 | P.CONPHA_ITS ---
Pharmacy Intervention Comments: MEDICATION RECONCILIATION COMPLETE USING LIST FROM RECENT [facility] VISIT AND EXTERNAL PHARMACY FILL HISTORY.
--- NOTE | 2024-07-09 08:09 | HMH.PHAINT1 ---
Pharmacy Intervention Comments: MEDICATION RECONCILIATION COMPLETE USING LIST FROM RECENT [facility] VISIT AND EXTERNAL PHARMACY FILL HISTORY.
[2024-07-09 08:23] LABS: Basophils % 0.3 % (0.1-2.0); Eosinophils % 0.2 % (0.1-12.0); Lymphocytes # 1.2 K/mm3 (0.7-4.5); Mean Platelet Volume 10.1 fl (7.4-10.4); Monocytes # 1.2 K/mm3 (0.1-1.0)
[2024-07-09 08:33] LABS: Alanine Aminotransferase 21 U/L (12-78); Albumin Level 3.5 g/dl (3.5-5.0); Albumin/Globulin Ratio 1.2 (1.1-1.8); Alkaline Phosphatase 93 U/L (38-126); Anion Gap 12.2 mEq/L (5-15); Aspartate Amino Transferase 26 U/L (17-59); Bilirubin,Total 1.3 mg/dl (0.2-1.3); Blood Urea Nitrogen 18 mg/dl (9-20); Calcium 8.7 mg/dl (8.4-10.2); Carbon Dioxide 28 mmol/L (22.0-30.0); Chloride 95 mmol/L (98-107); Creatinine Clearance Estimated 217 mL/min (50-200); Estimated Glomerular Filt Rate 146 ml/min (>60); GFR (African American) 176 ML/MIN (>60); Glucose 277 mg/dl (74-100); Lymphocytes % 7.7 % (10-50); Magnesium 1.8 mg/dl (1.6-2.3); Mean Corpuscular HGB Conc 34.7 g/dL (31.8-35.4); Mean Corpuscular Hemoglobin 28.2 pg (27.0-31.2); Mean Corpuscular Volume 81.2 fl (80-94); Neutrophils # 12.8 K/mm3 (1.8-7.8); Neutrophils % 82.8 % (37.0-80.0); Platelet Count 203 K/mm3 (142-424); Potassium 4.2 mmoL/L (3.5-5.1); Red Blood Count 4.68 M/mm3 (4.60-6.20); Sodium 131 mmol/L (136-145); Total Protein,Serum 6.5 g/dl (6.3-8.2); White Blood Count 15.5 K/mm3 (4.8-10.8)
[2024-07-09 08:49] LABS: Hemoglobin 13.2 g/dL (14.1-18.0)
[2024-07-09 08:50] LABS: MANUAL DIFFERENTIAL MANUAL DIFFERENTIAL (MANUAL DIFF)
[2024-07-09] MEDS: VANCOMYCIN HCL 2,000 MG in 0.9 % SODIUM CHLORIDE 250 ML 125 MG IV ×2 (09:11→20:06)
[2024-07-09] MEDS: ENOXAPARIN 40MG/0.4ML SYRINGE 40 MG SUBCUT (09:12)
[2024-07-09] MEDS: ACETAMINOPHEN 325MG TAB 650 MG PO (09:18)
[2024-07-09] MEDS: SODIUM CHLORIDE 0.9% 25ML BAG 25 ML IV (10:05)
[2024-07-09] MEDS: PROMETHAZINE HCL 25MG/ML 1ML VIAL 12.5 MG IV ×3 (10:05→23:09)
[2024-07-09 10:12] LABS: Hemoglobin A1C 10.2 % (4.0-6.0)
[2024-07-09] MEDS: MAGNESIUM SULFATE IN WATER 2 GM/50 ML PIGGYBACK IV (11:20)
[2024-07-09 12:04] LABS: Lymphocytes % 8 % (10-50); Monocytes % 6 % (2-9); Neutrophils % 86 % (42-76); Platelet Estimate Normal; RBC Morphology Normal; Total Cells Counted 100
--- NOTE | 2024-07-09 13:01 | EXP.SURG.PN ---
Subjective Patient reports: no new complaints and pain is less Narrative: Feeling better, up with family Exam Data for Last 24 hours Vital signs and Labs for Last 24 Hours: Temp Pulse Resp BP Pulse Ox O2 Del Method 99.8 F H 86 18 111/66 97 Room Air 07/09/24 07:58 07/09/24 07:58 07/09/24 07:58 07/09/24 07:58 07/09/24 07:58 07/09/24 09:00 Laboratory Results - last 24 hr 07/08/24 20:40: Random Glucose 488 H* 07/09/24 06:06: POC Glucose 263 H 07/09/24 07:58: WBC 15.5 H, RBC 4.68, Hgb 13.2 L D, Hct 38.0 L, MCV 81.2, MCH 28.2, MCHC 34.7, RDW 12.0, Plt Count 203, MPV 10.1, Neut % (Auto) 82.8 H, Lymph % (Auto) 7.7 L, [place] % (Auto) 8.0, Eos % (Auto) 0.2, Baso % (Auto) 0.3, Neut # (Auto) 12.8 H, Lymph # (Auto) 1.2, [place] # (Auto) 1.2 H, Eos # (Auto) 0.0, Baso # (Auto) 0.0, Total Counted 100, Neutrophils % (Manual) 86 H, Lymphocytes % (Manual) 8 L, Monocytes % (Manual) 6, Platelet Estimate Normal, RBC Morphology Normal, Sodium 131 L, Potassium 4.2, Chloride 95 L, Carbon Dioxide 28, Anion Gap 12.2, BUN 18, Creatinine 0.60 L D, Estimated Creat Clear 217, Estimated GFR 146, Est GFR ( Amer) 176 D, Glucose 277 H D, Hemoglobin A1c 10.2 H, Calcium 8.7, Magnesium 1.8, Total Bilirubin 1.3, AST 26, ALT 21, Alkaline Phosphatase 93, Total Protein 6.5, Albumin 3.5 D, Globulin 3.0, Albumin/Globulin Ratio 1.2 I & O for Last 24 hours: Intake & Output 07/06/24 07/07/24 07/08/24 07/09/24 23:59 23:59 23:59 23:59 Intake Total 1380 / 1780 880 / 880 Output Total 0 / 0 Balance 1380 / 1780 880 / 880 Weight 215 lb 218 lb Microbiology Reports for the Last 24 Hours: Microbiology 07/08/24 10:06 Blood Blood Culture - Preliminary NO GROWTH AFTER 24 HOURS 07/08/24 09:59 Blood Blood Culture - Preliminary NO GROWTH AFTER 24 HOURS 07/08/24 12:44 Rectum Gram Stain - Final *Routine Rectal Exam Comments: Wound with minimal surrounding induration and minimal cellulitis Progress Note: A&P Assessment and plan (1) Abscess, perirectal: Problem details: Improving after debridement and drainage, I would continue dressing changes. Recommend tight control of his glucose as this is the primary cause of the perirectal abscess. Status: Acute
[2024-07-09] MEDS: HYDROMORPHONE 2MG/ML SYRINGE 0.5 MG IV ×3 (13:36→22:15)
--- NOTE | 2024-07-09 13:52 | EXP.PN ---
Subjective *Date: 07/09/24 *Time: 13:57 Interval history: Patient is having pain in his rectal area, but while managed with pain regimen. Eager to be discharged, but understands we are waiting on cultures. Exam Data for Last 24 hours Vital signs and Labs for Last 24 Hours: Temp Pulse Resp BP Pulse Ox O2 Del Method 99.8 F H 86 18 111/66 97 Room Air 07/09/24 07:58 07/09/24 07:58 07/09/24 07:58 07/09/24 07:58 07/09/24 07:58 07/09/24 09:00 Laboratory Results - last 24 hr 07/08/24 20:40: Random Glucose 488 H* 07/09/24 06:06: POC Glucose 263 H 07/09/24 07:58: WBC 15.5 H, RBC 4.68, Hgb 13.2 L D, Hct 38.0 L, MCV 81.2, MCH 28.2, MCHC 34.7, RDW 12.0, Plt Count 203, MPV 10.1, Neut % (Auto) 82.8 H, Lymph % (Auto) 7.7 L, [place] % (Auto) 8.0, Eos % (Auto) 0.2, Baso % (Auto) 0.3, Neut # (Auto) 12.8 H, Lymph # (Auto) 1.2, [place] # (Auto) 1.2 H, Eos # (Auto) 0.0, Baso # (Auto) 0.0, Total Counted 100, Neutrophils % (Manual) 86 H, Lymphocytes % (Manual) 8 L, Monocytes % (Manual) 6, Platelet Estimate Normal, RBC Morphology Normal, Sodium 131 L, Potassium 4.2, Chloride 95 L, Carbon Dioxide 28, Anion Gap 12.2, BUN 18, Creatinine 0.60 L D, Estimated Creat Clear 217, Estimated GFR 146, Est GFR ( Amer) 176 D, Glucose 277 H D, Hemoglobin A1c 10.2 H, Calcium 8.7, Magnesium 1.8, Total Bilirubin 1.3, AST 26, ALT 21, Alkaline Phosphatase 93, Total Protein 6.5, Albumin 3.5 D, Globulin 3.0, Albumin/Globulin Ratio 1.2 I & O for Last 24 hours: Intake & Output 07/06/24 07/07/24 07/08/2425 23:59 23:59 23:59 23:59 Intake Total 1380 / 1780 1120 / 1120 Output Total 0 / 0 Balance 1380 / 1780 1120 / 1120 Weight 97.522 kg 98.883 kg Microbiology Reports for the Last 24 Hours: Microbiology 07/08/24 12:44 Rectum Gram Stain - Final 07/08/24 12:44 Rectum Abscess Culture - Preliminary NO GROWTH AFTER 24 HOURS 07/08/24 10:06 Blood Blood Culture - Preliminary NO GROWTH AFTER 24 HOURS 07/08/24 09:59 Blood Blood Culture - Preliminary NO GROWTH AFTER 24 HOURS Constitutional Constitutional: no acute distress *Routine HEENT Exam Head: Present normocephalic Eye: Present EOMI and PERRL ENT: Present mucous membranes moist *Routine Neck Exam Neck: Present supple; Absent lymphadenopathy *Routine Respiratory Exam Respiratory: Present CTA bilaterally *Routine Cardiovascular Exam Cardiovascular: Present RRR *Routine Abdominal Exam Abdominal: Present soft and normoactive bowel sounds; Absent tenderness *Routine Rectal Exam Comments: Wound with minimal surrounding induration and minimal cellulitis *Routine Extremities Exam Extremities: Absent cyanosis, clubbing or edema *Routine Skin Exam Skin: Present warm; Absent rash *Routine Neurological Exam Neurological: Present alert and oriented X3 Assessment and Plan *Assessment and plan (1) Abscess, perirectal: Problem Comment: Improving after debridement and drainage, I would continue dressing changes. Recommend tight control of his glucose as this is the primary cause of the perirectal abscess. Status: Acute Category: Medical Code(s): K61.1 - Rectal abscess (2) Sepsis: Status: Acute Category: Medical Code(s): A41.9 - Sepsis, unspecified organism (3) Uncontrolled diabetes mellitus: Status: Acute Category: Medical Plan Juan Zuleta is a 44-year-old male with a medical history significant for uncontrolled diabetes who was admitted for sepsis secondary to perirectal abscess with fistula s/p I&D and debridement with general surgery. #Sepsis #Perirectal abscess with fistula - General sugery consulted, s/p I&D and debridement of necrotic skin 07/08/2024. Assisting with care. - No known history of IBD, however does have intermittent abdominal pains. No rectal bleeding. Would recommend colonoscopy after discharge. ? At this time, perirectal abscess with fistulization likely secondary to uncontrolled diabetes. ? Initial WBC 16.3, with tachycardia. ? Continue vancomycin, Zosyn pending cultures. ? WBC improved to 15.5 today, tachycardia resolved. ? Follow up surgical and blood cultures. #Uncontrolled type 2 diabetes ? Hemoglobin A1c 10.2, blood sugars in the 400s. ? Increase Lantus to 20 units nightly. ? LDSSI, ACHS glucose checks. ? Continue home metformin 1000 mg twice daily. Full code Lovenox 40 mg
[2024-07-09 16:00] VITALS: BP 121/73; PULSE 90; RESP 16; TEMP 36.9; O2SAT 97
[2024-07-09 16:51] LABS: POC Glucose,Bedside 257 (70-110)
[2024-07-09] MEDS: METFORMIN 500MG TABLET 1000 MG PO (16:51)
[2024-07-09 20:00] VITALS: BP 133/75; PULSE 108; RESP 18; TEMP 36.7; O2SAT 98
[2024-07-09] MEDS: INSULIN GLARGINE 100 UNITS/ML 3ML FLEXPEN 20 UNIT SUBCUT (20:05)
[2024-07-09 21:06] LABS: POC Glucose,Bedside 362 (70-110)
[2024-07-10] VITALS: BP 131/70; PULSE 93; RESP 18; TEMP 36.9; O2SAT 95
[2024-07-10 04:00] VITALS: BP 118/65; PULSE 92; RESP 18; TEMP 36.5; O2SAT 95; BMI 28.8
[2024-07-10] MEDS: HYDROMORPHONE 2MG/ML SYRINGE 0.5 MG IV ×6 (06:16→22:39)
[2024-07-10] MEDS: PIPERCILLIN/TAZO 3.375 GM in 0.9 % SODIUM CHLORIDE 50 ML IV ×2 (06:24→13:48)
[2024-07-10] MEDS: humaLOG 100 UNITS/ML 10ML VIAL (SSI) SUBCUT ×4 (06:26→21:02)
[2024-07-10 06:48] LABS: POC Glucose,Bedside 252 (70-110)
[2024-07-10 08:00] VITALS: BP 122/78; PULSE 96; RESP 18; TEMP 36.8; O2SAT 96
[2024-07-10 09:12] LABS: Basophils # 0.1 K/mm3 (0-0.2); Basophils % 0.6 % (0.1-2.0); Eosinophils # 0.1 K/mm3 (0.0-0.4); Eosinophils % 1.4 % (0.1-12.0); Hematocrit 37.7 % (42.0-52.0); Hemoglobin 12.7 g/dL (14.1-18.0); Lymphocytes # 1.5 K/mm3 (0.7-4.5); Lymphocytes % 15.7 % (10-50); Mean Corpuscular HGB Conc 33.7 g/dL (31.8-35.4); Mean Corpuscular Hemoglobin 27.7 pg (27.0-31.2); Mean Corpuscular Volume 82.1 fl (80-94); Mean Platelet Volume 9.9 fl (7.4-10.4); Monocytes # 0.8 K/mm3 (0.1-1.0); Neutrophils # 6.9 K/mm3 (1.8-7.8); Neutrophils % 73.2 % (37.0-80.0); Platelet Count 226 K/mm3 (142-424); Red Blood Count 4.59 M/mm3 (4.60-6.20); Red Cell Distribution Width 11.9 % (11.5-17.5); White Blood Count 9.4 K/mm3 (4.8-10.8)
[2024-07-10] MEDS: VANCOMYCIN HCL 2,000 MG in 0.9 % SODIUM CHLORIDE 250 ML 125 MG IV ×2 (09:17→21:02)
[2024-07-10] MEDS: PROMETHAZINE HCL 25MG/ML 1ML VIAL 12.5 MG IV ×2 (09:17→19:32)
[2024-07-10] MEDS: METFORMIN 500MG TABLET 1000 MG PO ×2 (09:17→17:39)
[2024-07-10] MEDS: PHA TO NURSING INSTRUCTION 1 EACH NOTAPPLIC (09:18)
[2024-07-10] MEDS: 0.9 % SODIUM CHLORIDE 25 ML 100 ML IV (09:18)
[2024-07-10] MEDS: ENOXAPARIN 40MG/0.4ML SYRINGE 40 MG SUBCUT (09:18)
[2024-07-10 10:02] LABS: Chloride 97 mmol/L (98-107)
[2024-07-10 10:03] LABS: Albumin Level 3.3 g/dl (3.5-5.0); Potassium 4.1 mmoL/L (3.5-5.1); Sodium 128 mmol/L (136-145)
[2024-07-10 10:05] LABS: Alanine Aminotransferase 25 U/L (12-78); Albumin/Globulin Ratio 1.1 (1.1-1.8); Anion Gap 9.1 mEq/L (5-15); Aspartate Amino Transferase 35 U/L (17-59); Blood Urea Nitrogen 13 mg/dl (9-20); Carbon Dioxide 26 mmol/L (22.0-30.0); Creatinine Clearance Estimated 217 mL/min (50-200); Estimated Glomerular Filt Rate 146 ml/min (>60); GFR (African American) 176 ML/MIN (>60); Globulin 2.9 g/dL (1.3-3.2); Total Protein,Serum 6.2 g/dl (6.3-8.2)
[2024-07-10 10:06] LABS: Alkaline Phosphatase 104 U/L (38-126); Bilirubin,Total 0.8 mg/dl (0.2-1.3); Calcium 8.7 mg/dl (8.4-10.2); Glucose 325 mg/dl (74-100); Magnesium 1.5 mg/dl (1.6-2.3)
[2024-07-10 11:19] LABS: POC Glucose,Bedside 286 (70-110)
[2024-07-10 11:20] LABS: Vancomycin,Trough < 5.0 ug/mL (5.0-10.0)
--- NOTE | 2024-07-10 11:59 | EXP.SURG.PN ---
Subjective Narrative: Still in significant pain Exam Data for Last 24 hours Vital signs and Labs for Last 24 Hours: Temp Pulse Resp BP Pulse Ox O2 Del Method 98.3 F 96 H 18 122/78 96 Room Air 07/10/24 08:00 07/10/24 08:00 07/10/24 08:00 07/10/24 08:00 07/10/24 08:00 07/10/24 09:00 Laboratory Results - last 24 hr 07/09/24 07:58: Total Counted 100, Neutrophils % (Manual) 86 H, Lymphocytes % (Manual) 8 L, Monocytes % (Manual) 6, Platelet Estimate Normal, RBC Morphology Normal 07/09/24 16:44: POC Glucose 257 H 07/09/24 20:04: POC Glucose 362 H* 07/10/24 06:25: POC Glucose 252 H 07/10/24 08:50: WBC 9.4 D, RBC 4.59 L, Hgb 12.7 L, Hct 37.7 L, MCV 82.1, MCH 27.7, MCHC 33.7, RDW 11.9, Plt Count 226, MPV 9.9, Neut % (Auto) 73.2, Lymph % (Auto) 15.7, [place] % (Auto) 8.0, Eos % (Auto) 1.4, Baso % (Auto) 0.6, Neut # (Auto) 6.9, Lymph # (Auto) 1.5, [place] # (Auto) 0.8, Eos # (Auto) 0.1, Baso # (Auto) 0.1, Sodium 128 L, Potassium 4.1, Chloride 97 L, Carbon Dioxide 26, Anion Gap 9.1, BUN 13 D, Creatinine 0.60 L, Estimated Creat Clear 217, Estimated GFR 146, Est GFR ( Amer) 176, Glucose 325 H, Calcium 8.7, Magnesium 1.5 L D, Total Bilirubin 0.8, AST 35 D, ALT 25, Alkaline Phosphatase 104, Total Protein 6.2 L, Albumin 3.3 L, Globulin 2.9, Albumin/Globulin Ratio 1.1, Vancomycin Trough < 5.0 L 07/10/24 11:12: POC Glucose 286 H I & O for Last 24 hours: Intake & Output 07/07/24 07/08/24 07/09/24 07/10/24 23:59 23:59 23:59 23:59 Intake Total 1380 / 1780 1520 / 1969 650 / 650 Output Total 0 / 0 Balance 1380 / 1780 1520 / 1969 650 / 650 Weight 215 lb 218 lb 218 lb Microbiology Reports for the Last 24 Hours: Microbiology 07/08/24 10:06 Blood Blood Culture - Preliminary NO GROWTH AFTER 48 HOURS 07/08/24 09:59 Blood Blood Culture - Preliminary NO GROWTH AFTER 48 HOURS 07/08/24 12:44 Rectum Gram Stain - Final 07/08/24 12:44 Rectum Abscess Culture - Preliminary NO GROWTH AFTER 24 HOURS *Routine Rectal Exam Comments: Increase in perirectal induration but not erythema, some sloughing of surrounding skin Progress Note: A&P Assessment and plan (1) Abscess, perirectal: Problem details: Change dressing to wet to dry, BID. Will also need better glucose control before this improves. Continue current antibiotics until induration improves. Await culture final Status: Acute (2) Sepsis: Status: Acute (3) Uncontrolled diabetes mellitus: Status: Acute
[2024-07-10] MEDS: MAGNESIUM SULFATE IN WATER 2 GM/50 ML PIGGYBACK IV ×2 (13:48→15:53)
[2024-07-10 16:00] VITALS: BP 132/87; PULSE 85; RESP 18; TEMP 36.9; O2SAT 98
[2024-07-10 17:08] LABS: POC Glucose,Bedside 219 (70-110)
--- NOTE | 2024-07-10 17:19 | EXP.PN ---
Subjective *Date: 07/10/24 *Time: 17:19 Interval history: Patient feeling better today, less pain in rectal area. However, endorses increased pain with standing. Otherwise no other concerns at this time Exam Data for Last 24 hours Vital signs and Labs for Last 24 Hours: Temp Pulse Resp BP Pulse Ox O2 Del Method 98.3 F 96 H 18 122/78 96 Room Air 07/10/24 08:00 07/10/24 08:00 07/10/24 08:00 07/10/24 08:00 07/10/24 08:00 07/10/24 14:49 Laboratory Results - last 24 hr 07/09/24 20:04: POC Glucose 362 H* 07/10/24 06:25: POC Glucose 252 H 07/10/24 08:50: WBC 9.4 D, RBC 4.59 L, Hgb 12.7 L, Hct 37.7 L, MCV 82.1, MCH 27.7, MCHC 33.7, RDW 11.9, Plt Count 226, MPV 9.9, Neut % (Auto) 73.2, Lymph % (Auto) 15.7, [place] % (Auto) 8.0, Eos % (Auto) 1.4, Baso % (Auto) 0.6, Neut # (Auto) 6.9, Lymph # (Auto) 1.5, [place] # (Auto) 0.8, Eos # (Auto) 0.1, Baso # (Auto) 0.1, Sodium 128 L, Potassium 4.1, Chloride 97 L, Carbon Dioxide 26, Anion Gap 9.1, BUN 13 D, Creatinine 0.60 L, Estimated Creat Clear 217, Estimated GFR 146, Est GFR ( Amer) 176, Glucose 325 H, Calcium 8.7, Magnesium 1.5 L D, Total Bilirubin 0.8, AST 35 D, ALT 25, Alkaline Phosphatase 104, Total Protein 6.2 L, Albumin 3.3 L, Globulin 2.9, Albumin/Globulin Ratio 1.1, Vancomycin Trough < 5.0 L 07/10/24 11:12: POC Glucose 286 H 07/10/24 17:02: POC Glucose 219 H I & O for Last 24 hours: Intake & Output 07/07/24 07/08/24 07/09/24 07/10/24 23:59 23:59 23:59 23:59 Intake Total 138 / 1780 1519 890 / 890 Output Total 0 / 0 0 / 0 Balance 1380 / 1780 1519 890 / 890 Weight 97.522 kg 98.883 kg 98.883 kg Microbiology Reports for the Last 24 Hours: Microbiology 07/08/24 12:44 Rectum Gram Stain - Final 07/08/24 12:44 Rectum Abscess Culture - Preliminary NO GROWTH AFTER 48 HOURS 07/08/24 10:06 Blood Blood Culture - Preliminary NO GROWTH AFTER 48 HOURS 07/08/24 09:59 Blood Blood Culture - Preliminary NO GROWTH AFTER 48 HOURS Constitutional Constitutional: no acute distress *Routine HEENT Exam Head: Present normocephalic Eye: Present EOMI and PERRL ENT: Present mucous membranes moist *Routine Neck Exam Neck: Present supple; Absent lymphadenopathy *Routine Respiratory Exam Respiratory: Present CTA bilaterally *Routine Cardiovascular Exam Cardiovascular: Present RRR *Routine Abdominal Exam Abdominal: Present soft and normoactive bowel sounds; Absent tenderness *Routine Rectal Exam Comments: Wound with minimal surrounding induration and minimal cellulitis *Routine Extremities Exam Extremities: Absent cyanosis, clubbing or edema *Routine Skin Exam Skin: Present warm; Absent rash *Routine Neurological Exam Neurological: Present alert and oriented X3 Assessment and Plan *Assessment and plan (1) Abscess, perirectal: Problem Comment: Change dressing to wet to dry, BID. Will also need better glucose control before this improves. Continue current antibiotics until induration improves. Await culture final Status: Acute Category: Medical Code(s): K61.1 - Rectal abscess (2) Sepsis: Status: Acute Category: Medical Code(s): A41.9 - Sepsis, unspecified organism (3) Uncontrolled diabetes mellitus: Status: Acute Category: Medical Plan Juan Zuleta is a 44-year-old male with a medical history significant for uncontrolled diabetes who was admitted for sepsis secondary to perirectal abscess with fistula s/p I&D and debridement with general surgery. #Sepsis #Perirectal abscess with fistula - General sugery consulted, s/p I&D and debridement of necrotic skin 07/08/2024. Assisting with care. - No known history of IBD, however does have intermittent abdominal pains. No rectal bleeding. Would recommend colonoscopy after discharge. ? At this time, perirectal abscess with fistulization likely secondary to uncontrolled diabetes. ? Initial WBC 16.3, with tachycardia. ? Continue vancomycin, Zosyn pending cultures. ? WBC improved to 9.4 today, tachycardia resolved. ? Follow up surgical and blood cultures. ? Discussed case with surgery, plan to discharge with oral antibiotics once sugars are more stable. Anticipate discharge in the morning. #Uncontrolled type 2 diabetes ? Hemoglobin A1c 10.2, blood sugars in the 300s. ? Increase Lantus from 20 to 30 units nightly. Adjust based on SSI ? High intensity sliding scale insulin, ACHS glucose checks. ? Continue home metformin 1000 mg twice daily. #Hyponatremia ? Initial sodium 132, currently 128. ? Suspect from dehydration, continue to monitor. Will give 500 mL bolus. Full code Lovenox 40 mg
--- NOTE | 2024-07-10 18:03 | PC.NURSE ---
Pt has c/o pain and nausea multiple times this shift and has been medicated per AUG. Dressing change was done once this shift and is now BID and wet to dry per Dr. Frausto. dressing is C/D/I. Pt is eating most of meals. Ambulating independently to and from bathroom. call light in reach and no complaints at this time.
[2024-07-10 20:00] VITALS: BP 124/64; PULSE 80; RESP 17; TEMP 37.2; O2SAT 99
[2024-07-10 20:46] LABS: Vancomycin,Trough 5.5 ug/mL (5.0-10.0)
[2024-07-10] MEDS: INSULIN GLARGINE 100 UNITS/ML 3ML FLEXPEN 35 UNIT SUBCUT (21:01)
[2024-07-10 21:16] LABS: POC Glucose,Bedside 274 (70-110)
[2024-07-11] VITALS: BP 116/55; PULSE 82; RESP 17; TEMP 36.4; O2SAT 99
[2024-07-11] MEDS: PIPERCILLIN/TAZO 3.375 GM in 0.9 % SODIUM CHLORIDE 50 ML IV ×4 (00:15→22:12)
[2024-07-11] MEDS: PROMETHAZINE HCL 25MG/ML 1ML VIAL 12.5 MG IV (01:20)
[2024-07-11] MEDS: HYDROMORPHONE 2MG/ML SYRINGE 0.5 MG IV ×6 (01:21→20:12)
[2024-07-11 04:00] VITALS: BP 129/73; PULSE 84; RESP 16; TEMP 36.8; O2SAT 94; BMI 28.8
--- NOTE | 2024-07-11 05:42 | PC.NURSE ---
Pt A&OX4 and has tolerated room air. He has complained of pain multiple times this shift and was medicated per AUG. Perianal dressing changed this shift and is c/d/i. He has ambulated to the bathroom and halls independently. No complaints at this time, call light within reach.
[2024-07-11] MEDS: humaLOG 100 UNITS/ML 10ML VIAL (SSI) SUBCUT ×4 (06:16→22:12)
[2024-07-11 06:45] LABS: POC Glucose,Bedside 217 (70-110)
[2024-07-11 07:38] LABS: Basophils # 0.1 K/mm3 (0-0.2); Basophils % 1.1 % (0.1-2.0); Eosinophils # 0.2 K/mm3 (0.0-0.4); Eosinophils % 2.3 % (0.1-12.0); Hematocrit 41.6 % (42.0-52.0); Lymphocytes # 1.6 K/mm3 (0.7-4.5); Lymphocytes % 21.8 % (10-50); Mean Corpuscular HGB Conc 34.1 g/dL (31.8-35.4); Mean Corpuscular Hemoglobin 27.8 pg (27.0-31.2); Mean Corpuscular Volume 81.4 fl (80-94); Monocytes # 0.7 K/mm3 (0.1-1.0); Neutrophils # 4.6 K/mm3 (1.8-7.8); Neutrophils % 63.5 % (37.0-80.0); Platelet Count 231 K/mm3 (142-424); Red Blood Count 5.11 M/mm3 (4.60-6.20); Red Cell Distribution Width 11.8 % (11.5-17.5); White Blood Count 7.3 K/mm3 (4.8-10.8)
[2024-07-11 08:00] VITALS: BP 138/79; PULSE 88; RESP 18; TEMP 36.6; O2SAT 97
[2024-07-11 08:03] LABS: Alanine Aminotransferase 26 U/L (12-78); Albumin Level 3.7 g/dl (3.5-5.0); Albumin/Globulin Ratio 1.2 (1.1-1.8); Alkaline Phosphatase 95 U/L (38-126); Aspartate Amino Transferase 32 U/L (17-59); Bilirubin,Total 0.7 mg/dl (0.2-1.3); Blood Urea Nitrogen 11 mg/dl (9-20); Carbon Dioxide 28 mmol/L (22.0-30.0); Chloride 99 mmol/L (98-107); Creatinine Clearance Estimated 260 mL/min (50-200); Estimated Glomerular Filt Rate 180 ml/min (>60); GFR (African American) 218 ML/MIN (>60); Globulin 3.1 g/dL (1.3-3.2); Glucose 227 mg/dl (74-100); Magnesium 1.7 mg/dl (1.6-2.3); Sodium 134 mmol/L (136-145); Total Protein,Serum 6.8 g/dl (6.3-8.2)
--- NOTE | 2024-07-11 08:12 | P.PN_ITS ---
Subjective *Date: 07/11/24 *Time: 08:12 Medical Exam Vital signs and Labs for Last 24 Hours: Vital Signs Temp Pulse Resp BP Pulse Ox O2 Del Method 07/11/24 06:42 Room Air 07/11/24 05:00 Room Air 07/11/24 04:00 98.3 F 84 16 129/73 94 L Room Air 07/11/24 03:00 Room Air 07/11/24 01:00 Room Air 07/11/24 00:00 97.6 F 82 17 116/55 L 99 Room Air 07/10/24 23:00 Room Air 07/10/24 21:00 Room Air 07/10/24 20:00 Room Air 07/10/24 20:00 99.0 F 80 17 124/64 99 Room Air 07/10/24 18:30 Room Air 07/10/24 17:00 Room Air 07/10/24 16:00 98.4 F 85 18 132/87 98 Room Air 07/10/24 14:49 Room Air 07/10/24 13:00 Room Air 07/10/24 11:00 Room Air 07/10/24 09:00 Room Air Intake and Output 07/10/24 07/11/24 07/11/24 23:59 07:59 15:59 Intake Total 500 / 500 Output Total 0 / 0 Balance 0 / 1390 500 / 500 Intake: Intake, Oral Amount 200 / 200 Intake, Total IV Amount 300 / 300 Pipercillin/Tazo 3.375 gm In 0. 50 / 50 9 % Sodium Chloride 50 ml @ 100 mls/hr IV Q8H [facility] Rx#:[id number] Vancomycin HCl 2,000 mg In 0.9 250 / 250 % Sodium Chloride 250 ml @ 125 mls/hr IV Q12H [facility] Rx#:[id number] Output: Output, Urine Amount 0 / 0 Other: Number of Unmeasured Voids 2 Weight 98.43 kg Patient Weight 07/11/24 23:59 Weight 98.43 kg Laboratory Results - last 24 hr 07/10/24 08:50: WBC 9.4 D, RBC 4.59 L, Hgb 12.7 L, Hct 37.7 L, MCV 82.1, MCH 27.7, MCHC 33.7, RDW 11.9, Plt Count 226, MPV 9.9, Neut % (Auto) 73.2, Lymph % (Auto) 15.7, [place] % (Auto) 8.0, Eos % (Auto) 1.4, Baso % (Auto) 0.6, Neut # (Auto) 6.9, Lymph # (Auto) 1.5, [place] # (Auto) 0.8, Eos # (Auto) 0.1, Baso # (Auto) 0.1, Sodium 128 L, Potassium 4.1, Chloride 97 L, Carbon Dioxide 26, Anion Gap 9.1, BUN 13 D, Creatinine 0.60 L, Estimated Creat Clear 217, Estimated GFR 146, Est GFR ( Amer) 176, Glucose 325 H, Calcium 8.7, Magnesium 1.5 L D, Total Bilirubin 0.8, AST 35 D, ALT 25, Alkaline Phosphatase 104, Total Protein 6.2 L, Albumin 3.3 L, Globulin 2.9, Albumin/Globulin Ratio 1.1, Vancomycin Trough < 5.0 L 07/10/24 11:12: POC Glucose 286 H 07/10/24 17:02: POC Glucose 219 H 07/10/24 19:55: Vancomycin Trough 5.5 07/10/24 20:59: POC Glucose 274 H 07/11/24 06:16: POC Glucose 217 H 07/11/24 07:14: WBC 7.3, RBC 5.11, Hct 41.6 L, MCV 81.4, MCH 27.8, MCHC 34.1, RDW 11.8, Plt Count 231, MPV 10.0, Neut % (Auto) 63.5, Lymph % (Auto) 21.8, [place] % (Auto) 9.0, Eos % (Auto) 2.3, Baso % (Auto) 1.1, Neut # (Auto) 4.6, Lymph # (Auto) 1.6, [place] # (Auto) 0.7, Eos # (Auto) 0.2, Baso # (Auto) 0.1, Sodium 134 L , Chloride 99, Carbon Dioxide 28, BUN 11, Creatinine 0.50 L, Estimated Creat Clear 260, Estimated GFR 180, Est GFR ( Amer) 218 D, Glucose 227 H D, Calcium 9.0, Magnesium 1.7 D, Total Bilirubin 0.7, AST 32, ALT 26, Alkaline Phosphatase 95, Total Protein 6.8, Albumin 3.7 D, Globulin 3.1, Albumin/Globulin Ratio 1.2 I & O for Labs for Last 24 Hours: Intake & Output 07/08/24 07/09/24 07/10/24 07/11/24 23:59 23:59 23:59 23:59 Intake Total 1380 / 1780 1520 / 1969 890 / 1390 500 / 500 Output Total 0 / 0 0 / 0 Balance 1380 / 1780 152 / 1969 890 / 1390 500 / 500 Weight 97.522 kg 98.883 kg 98.883 kg 98.43 kg Microbiology Reports for the Last 24 Hours: Microbiology 07/08/24 12:44 Rectum Gram Stain - Final 07/08/24 12:44 Rectum Abscess Culture - Preliminary NO GROWTH AFTER 48 HOURS 07/08/24 10:06 Blood Blood Culture - Preliminary NO GROWTH AFTER 48 HOURS 07/08/24 09:59 Blood Blood Culture - Preliminary NO GROWTH AFTER 48 HOURS The patient's infection will respond to the chosen ABx?: Yes Is the patient receiving the right drug, dose, and route?: Yes Could a more targeted ABx be ordered?: No (AFEBRILE, WBC WNL, CX PENDING)
--- NOTE | 2024-07-11 08:24 | P.CONPHA_ITS ---
Pharmacy Consult Date: 07/11/24 Time: 08:24 Referring provider: DR. LOGAN Reason for Consult:: VANCOMYCIN DOSE CHANGE Allergies Allergy/AdvReac Type Severity Reaction Status Date / Time No Known Allergies Allergy Verified 07/06/24 09:51 Home Medications ?Medication ?Instructions ?Recorded ?Confirmed ?Type sulfamethoxazole 800 1 tab PO Q12H #20 tabs 07/06/24 07/09/24 Rx mg-trimethoprim 160 mg tablet (Bactrim DS) metformin 500 mg tablet 1,000 mg PO BIDWMEAL 07/08/24 07/08/24 History New Prescriptions to Start Prescriptions: Height: 1.85 m Weight: 98.43 kg Laboratory Results:: Laboratory Results - last 24 hr 07/10/24 08:50: WBC 9.4 D, RBC 4.59 L, Hgb 12.7 L, Hct 37.7 L, MCV 82.1, MCH 27.7, MCHC 33.7, RDW 11.9, Plt Count 226, MPV 9.9, Neut % (Auto) 73.2, Lymph % (Auto) 15.7, [place] % (Auto) 8.0, Eos % (Auto) 1.4, Baso % (Auto) 0.6, Neut # (Auto) 6.9, Lymph # (Auto) 1.5, [place] # (Auto) 0.8, Eos # (Auto) 0.1, Baso # (Auto) 0.1, Sodium 128 L, Potassium 4.1, Chloride 97 L, Carbon Dioxide 26, Anion Gap 9.1, BUN 13 D, Creatinine 0.60 L, Estimated Creat Clear 217, Estimated GFR 146, Est GFR ( Amer) 176, Glucose 325 H, Calcium 8.7, Magnesium 1.5 L D, Total Bilirubin 0.8, AST 35 D, ALT 25, Alkaline Phosphatase 104, Total Protein 6.2 L, Albumin 3.3 L, Globulin 2.9, Albumin/Globulin Ratio 1.1, Vancomycin Trough < 5.0 L 07/10/24 11:12: POC Glucose 286 H 07/10/24 17:02: POC Glucose 219 H 07/10/24 19:55: Vancomycin Trough 5.5 07/10/24 20:59: POC Glucose 274 H 07/11/24 06:16: POC Glucose 217 H 07/11/24 07:14: WBC 7.3, RBC 5.11, Hct 41.6 L, MCV 81.4, MCH 27.8, MCHC 34.1, RDW 11.8, Plt Count 231, MPV 10.0, Neut % (Auto) 63.5, Lymph % (Auto) 21.8, [place] % (Auto) 9.0, Eos % (Auto) 2.3, Baso % (Auto) 1.1, Neut # (Auto) 4.6, Lymph # (Auto) 1.6, [place] # (Auto) 0.7, Eos # (Auto) 0.2, Baso # (Auto) 0.1, Sodium 134 L , Chloride 99, Carbon Dioxide 28, BUN 11, Creatinine 0.50 L, Estimated Creat Clear 260, Estimated GFR 180, Est GFR ( Amer) 218 D, Glucose 227 H D, Calcium 9.0, Magnesium 1.7 D, Total Bilirubin 0.7, AST 32, ALT 26, Alkaline Phosphatase 95, Total Protein 6.8, Albumin 3.7 D, Globulin 3.1, Albumin/Globulin Ratio 1.2 Medical History: Medical History (Updated 07/10/24 @ 12:01 by Gaurav Frausto MD) Alcohol abuse Drug abuse in remission Diabetes mellitus Assessment and Plan Assessment and plan all Dx Assessment and Plan for all problems:: Pharmacokinetic dosing service Objective: Patient: Floor: Age: 44 yo Serum creatinine: 0.8 mg/dL Height: 72.8 Inches Weight (kg): 98 Assessment: IBW (kg): 79.44 Dosing wt(kg): 98 Estimated Creatinine clearance (ml/min): 130 Clearance limited to 130 ml/min to reduce risk of overdosing. CRCL method: Cockcroft and Gault using ibw(default). Drug selected: Vancomycin Loading dose (mg): 0 Vd (liters): 78.4 (factor used: 0.8 L/kg) [place] (hr-1): 0.112 Half life (hrs): 6.19 Recommended dose: 1750 mg Interval: 8 hrs Infusion time (hrs): 2.0 Predicted peak (mcg/mL): 33.8 Predicted trough (mcg/mL): 17.26 Total body weight is being used for vancomycin dosing. VANCOMYCIN TROUGH WITH 2000 MG Q12H WAS 5.5 MCG/ML. Recommendations: Give Vancomycin 1750 mg q 8 hrs with an expected Cpeak of 33.8 mcg/ml and an expected Ctrough of 17.26 mcg/ml ----Vanco only - ignore for aminoglycosides----- CLvanco= 8.78 L/hr AUC 0-24 /ERROL Data: ERROL 0.5 mcg/mL: AUC/ERROL: 1195.9 ERROL 1.0 mcg/mL: AUC/ERROL: 597.9 --------- ERROL 1.5 mcg/mL: AUC/ERROL: 398.6 ERROL 2.0 mcg/mL: AUC/ERROL: 299.0
[2024-07-11 08:36] LABS: Hemoglobin 14.3 g/dL (14.1-18.0)
[2024-07-11] MEDS: VANCOMYCIN/WATER FOR INJ (PEG) 1.75 GM/350 ML PIGGYBACK IV ×2 (08:40→17:57)
[2024-07-11] MEDS: METFORMIN 500MG TABLET 1000 MG PO ×2 (08:40→18:37)
[2024-07-11] MEDS: ENOXAPARIN 40MG/0.4ML SYRINGE 40 MG SUBCUT (08:41)
[2024-07-11 08:57] LABS: Anion Gap 11.1 mEq/L (5-15); Potassium 4.1 mmoL/L (3.5-5.1)
--- NOTE | 2024-07-11 09:30 | EXP.SURG.PN ---
Subjective Narrative: Patient's dressing changes have been increased to twice daily. He does state that the pain is improved. He is moving his bowels. Exam Data for Last 24 hours Vital signs and Labs for Last 24 Hours: Temp Pulse Resp BP Pulse Ox O2 Del Method 97.8 F 88 18 138/79 97 Room Air 07/11/24 08:00 07/11/24 08:00 07/11/24 08:00 07/11/24 08:00 07/11/24 08:00 07/11/24 08:00 Laboratory Results - last 24 hr 07/10/24 08:50: Sodium 128 L, Potassium 4.1, Chloride 97 L, Carbon Dioxide 26, Anion Gap 9.1, BUN 13 D, Creatinine 0.60 L, Estimated Creat Clear 217, Estimated GFR 146, Est GFR ( Amer) 176, Glucose 325 H, Calcium 8.7, Magnesium 1.5 L D, Total Bilirubin 0.8, AST 35 D, ALT 25, Alkaline Phosphatase 104, Total Protein 6.2 L, Albumin 3.3 L, Globulin 2.9, Albumin/Globulin Ratio 1.1, Vancomycin Trough < 5.0 L 07/10/24 11:12: POC Glucose 286 H 07/10/24 17:02: POC Glucose 219 H 07/10/24 19:55: Vancomycin Trough 5.5 07/10/24 20:59: POC Glucose 274 H 07/11/24 06:16: POC Glucose 217 H 07/11/24 07:14: WBC 7.3, RBC 5.11, Hgb 14.3 D, Hct 41.6 L, MCV 81.4, MCH 27.8, MCHC 34.1, RDW 11.8, Plt Count 231, MPV 10.0, Neut % (Auto) 63.5, Lymph % (Auto) 21.8, [place] % (Auto) 9.0, Eos % (Auto) 2.3, Baso % (Auto) 1.1, Neut # (Auto) 4.6, Lymph # (Auto) 1.6, [place] # (Auto) 0.7, Eos # (Auto) 0.2, Baso # (Auto) 0.1, Sodium 134 L, Potassium 4.1, Chloride 99, Carbon Dioxide 28, Anion Gap 11.1, BUN 11, Creatinine 0.50 L, Estimated Creat Clear 260, Estimated GFR 180, Est GFR ( Amer) 218 D, Glucose 227 H D, Calcium 9.0, Magnesium 1.7 D, Total Bilirubin 0.7, AST 32, ALT 26, Alkaline Phosphatase 95, Total Protein 6.8, Albumin 3.7 D, Globulin 3.1, Albumin/Globulin Ratio 1.2 I & O for Last 24 hours: Intake & Output 07/08/24 07/09/24 07/10/24 07/11/24 11:59 11:59 11:59 11:59 Intake Total 2260 / 2260 1290 / 1290 980 / 980 Output Total 0 / 0 0 / 0 0 / 0 Balance 2260 / 2260 1290 / 1290 980 / 980 Weight 220 lb 218 lb 218 lb 217 lb Microbiology Reports for the Last 24 Hours: Microbiology 07/08/24 12:44 Rectum Gram Stain - Final 07/08/24 12:44 Rectum Abscess Culture - Preliminary NO GROWTH AFTER 48 HOURS 07/08/24 10:06 Blood Blood Culture - Preliminary NO GROWTH AFTER 48 HOURS 07/08/24 09:59 Blood Blood Culture - Preliminary NO GROWTH AFTER 48 HOURS *Routine Skin Exam Comments: Mild induration at site of tunneling. Erythema regressing. Progress Note: A&P Assessment and plan (1) Abscess, perirectal: Status: Acute Assessment and plan: Continue dressing changes twice daily for now. As an outpatient may be able to do daily dressing changes. Cultures pending. (2) Sepsis: Status: Acute (3) Uncontrolled diabetes mellitus: Status: Acute
[2024-07-11] MEDS: MAGNESIUM SULFATE IN WATER 2 GM/50 ML PIGGYBACK IV (11:01)
[2024-07-11 11:34] LABS: POC Glucose,Bedside 287 (70-110)
--- NOTE | 2024-07-11 12:31 | US_ITS ---
PROCEDURE INFORMATION: Exam: US Abdomen, Limited; Right Upper Quadrant Exam date and time: 07/11/2024 3:48 PM Age: 44 years old Clinical indication: Abnormal findings; Abnormal radiologic finding of the abdomen; Radiologic exam and body structure: CT; Additional info: Ruq pain, worse with eating TECHNIQUE: Imaging protocol: Real time ultrasound of the abdomen with image documentation. Limited exam focused on the right upper quadrant. COMPARISON: CT ABDOMEN PELVIS W CON 07/08/2024 10:14 AM FINDINGS: Liver: The liver appears normal in size and echogenicity, with no evidence of focal hepatic lesions or intrahepatic ductal dilatation. Portal and hepatic veins are patent and show no signs of thrombosis. Gallbladder: There is a small echogenic focus noted along the gallbladder wall which is favored to reflect a small polyp measuring up to 0.5 cm. There is a small amount of sludge within a distended gallbladder. Biliary ducts: The common bile duct measures within normal limits, and there are no signs of dilatation. Pancreas: The pancreas is not well visualized. Right kidney: The right kidney is normal in size, contour, and echogenicity. No hydronephrosis, renal calculi, or focal renal lesions are identified. The renal pelvis and calyces appear unremarkable, and there is no evidence of obstruction. IMPRESSION: 1. There is a small echogenic focus noted along the gallbladder wall which is favored to reflect a small polyp measuring up to 0.5 cm. 2. There is a small amount of sludge within a distended gallbladder.
[2024-07-11 14:03] VITALS: BMI 28.8
[2024-07-11 16:00] VITALS: BP 134/80; PULSE 87; RESP 14; TEMP 36.9; O2SAT 99
--- NOTE | 2024-07-11 18:35 | P.PN_ITS ---
Subjective *Date: 07/11/24 *Time: 18:35 Interval history: Patient continues to improve, states he feels better today. Able to ambulate with less pain. Plan was to discharge today, however patient's will need to be educated on dressing changes. She will be available to come in tomorrow for education with wound care. Exam Data for Last 24 hours Vital signs and Labs for Last 24 Hours: Temp Pulse Resp BP Pulse Ox O2 Del Method 98.4 F 87 14 134/80 99 Room Air 07/11/24 16:00 07/11/24 16:00 07/11/24 16:00 07/11/24 16:00 07/11/24 16:00 07/11/24 16:00 Laboratory Results - last 24 hr 07/10/24 19:55: Vancomycin Trough 5.5 07/10/24 20:59: POC Glucose 274 H 07/11/24 06:16: POC Glucose 217 H 07/11/24 07:14: WBC 7.3, RBC 5.11, Hgb 14.3 D, Hct 41.6 L, MCV 81.4, MCH 27.8, MCHC 34.1, RDW 11.8, Plt Count 231, MPV 10.0, Neut % (Auto) 63.5, Lymph % (Auto) 21.8, [place] % (Auto) 9.0, Eos % (Auto) 2.3, Baso % (Auto) 1.1, Neut # (Auto) 4.6, Lymph # (Auto) 1.6, [place] # (Auto) 0.7, Eos # (Auto) 0.2, Baso # (Auto) 0.1, Sodium 134 L, Potassium 4.1, Chloride 99, Carbon Dioxide 28, Anion Gap 11.1, BUN 11, Creatinine 0.50 L, Estimated Creat Clear 260, Estimated GFR 180, Est GFR ( Amer) 218 D, Glucose 227 H D, Calcium 9.0, Magnesium 1.7 D, Total Bilirubin 0.7, AST 32, ALT 26, Alkaline Phosphatase 95, Total Protein 6.8, Albumin 3.7 D, Globulin 3.1, Albumin/Globulin Ratio 1.2 07/11/24 11:07: POC Glucose 287 H I & O for Last 24 hours: Intake & Output 07/08/24 07/09/24 07/10/2407/11/25 23:59 23:59 23:59 23:59 Intake Total 1380 / 1780 1519 890 / 1390 1120 / 1120 Output Total 0 / 0 0 / 0 0 / 0 Balance 1380 / 1780 1519 890 / 1390 1120 / 1120 Weight 97.522 kg 98.883 kg 98.883 kg 98.43 kg Microbiology Reports for the Last 24 Hours: Microbiology 07/08/24 12:44 Rectum Gram Stain - Final 07/08/24 12:44 Rectum Abscess Culture - Preliminary NO GROWTH AFTER 72 HOURS Constitutional Constitutional: no acute distress *Routine HEENT Exam Head: Present normocephalic Eye: Present EOMI and PERRL ENT: Present mucous membranes moist *Routine Neck Exam Neck: Present supple; Absent lymphadenopathy *Routine Respiratory Exam Respiratory: Present CTA bilaterally *Routine Cardiovascular Exam Cardiovascular: Present RRR *Routine Abdominal Exam Abdominal: Present soft and normoactive bowel sounds; Absent tenderness *Routine Rectal Exam Comments: Wound with minimal surrounding induration and minimal cellulitis *Routine Extremities Exam Extremities: Absent cyanosis, clubbing or edema *Routine Skin Exam Skin: Present warm; Absent rash Comments: Mild induration at site of tunneling. Erythema regressing. *Routine Neurological Exam Neurological: Present alert and oriented X3 Assessment and Plan *Assessment and plan (1) Abscess, perirectal: Status: Acute Category: Medical Code(s): K61.1 - Rectal abscess (2) Sepsis: Status: Acute Category: Medical Code(s): A41.9 - Sepsis, unspecified organism (3) Uncontrolled diabetes mellitus: Status: Acute Category: Medical Plan Juan Zuleta is a 44-year-old male with a medical history significant for uncontrolled diabetes who was admitted for sepsis secondary to perirectal abscess with fistula s/p I&D and debridement with general surgery. #Sepsis #Perirectal abscess with fistula - General sugery consulted, s/p I&D and debridement of necrotic skin 07/08/2024. Assisting with care. - No known history of IBD, however does have intermittent abdominal pains. No rectal bleeding. Would recommend colonoscopy after discharge. ? At this time, perirectal abscess with fistulization likely secondary to uncontrolled diabetes. ? Initial WBC 16.3, with tachycardia. ? Continue vancomycin, Zosyn pending cultures. ? WBC improved to 7.3 today, tachycardia resolved. ? Surgical and blood cultures NGTD. ? Plan was to discharge today, however patient's will need to be educated on dressing changes. She will be available to come in tomorrow for education with wound care. #Uncontrolled type 2 diabetes ? Hemoglobin A1c 10.2, blood sugars in the 300-400s initially. ? Blood sugars continue to be in the 200s, likely exacerbated by infection as above. ? Increased Lantus from 30 to 40 units nightly. Adjust based on SSI ? High intensity sliding scale insulin, ACHS glucose checks. ? Continue home metformin 1000 mg twice daily. Full code Lovenox 40 mg
[2024-07-11 18:54] LABS: POC Glucose,Bedside 191 (70-110)
--- NOTE | 2024-07-11 19:25 | PC.NURSE ---
pt is a/o x4 and remains on RA. pt has been treated per MAR for pain control throughout shift. glucose levels treated per sliding scale. perianal dressing changed at 1530, dressing is c/d/i. uses the bathroom independently. call light within reach, no further requests at this time.
[2024-07-11 20:00] VITALS: BP 133/82; PULSE 71; RESP 18; TEMP 36.8; O2SAT 99
[2024-07-11] MEDS: INSULIN GLARGINE 100 UNITS/ML 3ML FLEXPEN 35 UNIT SUBCUT (22:12)
[2024-07-11] MEDS: ONDANSETRON 4MG/2ML VIAL 4 MG IV (22:22)
[2024-07-11] MEDS: OXYCODONE 5MG W/APAP 325MG TABLET 1 EACH PO (22:24)
[2024-07-11] MEDS: MORPHINE 2MG/ML SYRINGE 2 MG IV (23:52)
[2024-07-12] MEDS: VANCOMYCIN/WATER FOR INJ (PEG) 1.75 GM/350 ML PIGGYBACK IV (00:34)
--- NOTE | 2024-07-12 00:35 | PC.NURSE ---
this nurse changed pt dressing, wet to dry kerlix had small to scant amount of blood colored drainage with no odor, pt did not tolerate well and admitted to severe pain during packing of wound.
[2024-07-12] MEDS: OXYCODONE 5MG W/APAP 325MG TABLET 2 EACH PO ×2 (02:47→09:12)
[2024-07-12 04:00] VITALS: BP 138/78; PULSE 75; RESP 14; TEMP 36.5; O2SAT 99; BMI 28.8
[2024-07-12] MEDS: PIPERCILLIN/TAZO 3.375 GM in 0.9 % SODIUM CHLORIDE 50 ML IV (05:23)
[2024-07-12] MEDS: humaLOG 100 UNITS/ML 10ML VIAL (SSI) SUBCUT (05:23)
[2024-07-12 06:30] LABS: POC Glucose,Bedside 269 (70-110)
[2024-07-12 06:33] LABS: Basophils # 0.1 K/mm3 (0-0.2); Basophils % 1.3 % (0.1-2.0); Eosinophils # 0.2 K/mm3 (0.0-0.4); Hematocrit 39.4 % (42.0-52.0); Hemoglobin 13.6 g/dL (14.1-18.0); Mean Corpuscular HGB Conc 34.5 g/dL (31.8-35.4); Mean Corpuscular Volume 81.1 fl (80-94); Mean Platelet Volume 9.4 fl (7.4-10.4); Monocytes # 0.7 K/mm3 (0.1-1.0); Monocytes % 10.2 % (1.7-9.3); Neutrophils # 3.8 K/mm3 (1.8-7.8); Neutrophils % 53.5 % (37.0-80.0); Platelet Count 258 K/mm3 (142-424); Red Blood Count 4.86 M/mm3 (4.60-6.20); Red Cell Distribution Width 11.7 % (11.5-17.5)
[2024-07-12 06:45] LABS: Alanine Aminotransferase 28 U/L (12-78); Albumin Level 3.4 g/dl (3.5-5.0); Albumin/Globulin Ratio 1.1 (1.1-1.8); Alkaline Phosphatase 78 U/L (38-126); Anion Gap 10.4 mEq/L (5-15); Aspartate Amino Transferase 33 U/L (17-59); Bilirubin,Total 0.5 mg/dl (0.2-1.3); Blood Urea Nitrogen 9 mg/dl (9-20); Calcium 8.8 mg/dl (8.4-10.2); Carbon Dioxide 27 mmol/L (22.0-30.0); Chloride 101 mmol/L (98-107); Creatinine Clearance Estimated 260 mL/min (50-200); Estimated Glomerular Filt Rate 180 ml/min (>60); GFR (African American) 218 ML/MIN (>60); Glucose 264 mg/dl (74-100); Magnesium 1.6 mg/dl (1.6-2.3); Potassium 4.4 mmoL/L (3.5-5.1); Sodium 134 mmol/L (136-145); Total Protein,Serum 6.4 g/dl (6.3-8.2)
[2024-07-12 08:00] VITALS: BP 138/82; PULSE 75; RESP 16; TEMP 36.8; O2SAT 99
[2024-07-12] MEDS: METFORMIN 500MG TABLET 1000 MG PO (08:05)
[2024-07-12] MEDS: ENOXAPARIN 40MG/0.4ML SYRINGE 40 MG SUBCUT (08:05)
--- NOTE | 2024-07-12 08:09 | EXP.DC.SUM ---
General Admission date:: 07/08/24 HPI HPI HPI: Adapted from general surgery note: Patient is a 44-year-old diabetic male. He states that over the past week he has had a tender nodule in the left perianal location. Became progressively more severe and he was seen in the [facility] on 07/06/2024 and was started on oral antibiotics. However he had significant progression and presented to the emergency department today. He was found to have findings consistent with significant perirectal abscess. He had some sepsis criteria with mild tachycardia and leukocytosis. CT scan was performed which revealed a large predominantly gas-filled perianal abscess with possible fistulous tract. General surgery consulted, s/p I&D and debridement. Case discussed with ED provider and decision was made to admit patient for sepsis secondary to perirectal abscess and uncontrolled diabetes. Hospital Course Hospital Course Hospital Course: Juan Zuleta is a 44-year-old male with a medical history significant for uncontrolled diabetes who was admitted for sepsis secondary to perirectal abscess with fistula s/p I&D and debridement with general surgery. #Sepsis #Perirectal abscess with fistula - General sugery consulted, s/p I&D and debridement of necrotic skin 07/08/2024. Assisting with care. - No known history of IBD, however does have intermittent abdominal pains. No rectal bleeding. Would recommend colonoscopy after discharge. ? At this time, perirectal abscess with fistulization likely secondary to uncontrolled diabetes. ? Clinically improved with Vancomycin, Zosyn. Will discharge with Augmentin, and dressing changes twice daily for now per surgery recommendations. will be educated on daily dressing changes. - Discharged with Augmentin 500mg TID for 7 more days. - Will follow-up with general surgery, GI. #Uncontrolled type 2 diabetes ? Hemoglobin A1c 10.2, blood sugars in the 300-400s initially. Started on Lantus but required quite some uptitration due to persistent hyperglycemia, likely exacerbated by infection as above. - Discharged with Lantus 45u nightly. ? Continue home metformin 1000 mg twice daily. - Will need to follow-up with PCP for further management. Exam Data for Last 24 hours Vital signs and Labs for Last 24 Hours: Temp Pulse Resp BP Pulse Ox O2 Del Method 97.7 F 75 14 138/78 99 Room Air 07/12/24 04:00 07/12/24 04:00 07/12/24 04:00 07/12/24 04:00 07/12/24 04:00 07/12/24 06:39 Laboratory Results - last 24 hr 07/11/24 07:14: Hgb 14.3 D, Potassium 4.1, Anion Gap 11.1 07/11/24 11:07: POC Glucose 287 H 07/11/24 17:56: POC Glucose 191 H 07/12/24 05:09: POC Glucose 269 H 07/12/24 06:07: WBC 7.0, RBC 4.86, Hgb 13.6 L, Hct 39.4 L, MCV 81.1, MCH 28.0, MCHC 34.5, RDW 11.7, Plt Count 258, MPV 9.4, Neut % (Auto) 53.5, Lymph % (Auto) 28.0, [place] % (Auto) 10.2 H, Eos % (Auto) 3.0, Baso % (Auto) 1.3, Neut # (Auto) 3.8, Lymph # (Auto) 2.0, [place] # (Auto) 0.7, Eos # (Auto) 0.2, Baso # (Auto) 0.1, Sodium 134 L, Potassium 4.4, Chloride 101, Carbon Dioxide 27, Anion Gap 10.4, BUN 9, Creatinine 0.50 L, Estimated Creat Clear 260, Estimated GFR 180, Est GFR ( Amer) 218, Glucose 264 H, Calcium 8.8, Magnesium 1.6, Total Bilirubin 0.5, AST 33, ALT 28, Alkaline Phosphatase 78, Total Protein 6.4, Albumin 3.4 L, Globulin 3.0, Albumin/Globulin Ratio 1.1 I & O for Last 24 hours: Intake & Output 07/09/24 07/10/24 07/11/24 07/12/24 23:59 23:59 23:59 23:59 Intake Total 15190 / 1391599 410 / 410 Output Total 0 / 0 0 / 0 0 / 0 0 / 0 Balance 1519 410 / 410 Weight 98.883 kg 98.883 kg 98.43 kg 98.43 kg Microbiology Reports for the Last 24 Hours: Microbiology 07/08/24 12:44 Rectum Gram Stain - Final 07/08/24 12:44 Rectum Abscess Culture - Preliminary NO GROWTH AFTER 72 HOURS Results Data Completed and Pending Labs on day of discharge: Labs from last 24 hours 07/12/24 07/12/24 07/11/24 06:07 05:09 17:56 WBC 7.0 RBC 4.86 Hgb 13.6 L Hct 39.4 L MCV 81.1 MCH 28.0 MCHC 34.5 RDW 11.7 Plt Count 258 MPV 9.4 Neut % (Auto) 53.5 Lymph % (Auto) 28.0 [place] % (Auto) 10.2 H Eos % (Auto) 3.0 Baso % (Auto) 1.3 Neut # (Auto) 3.8 Lymph # (Auto) 2.0 [place] # (Auto) 0.7 Eos # (Auto) 0.2 Baso # (Auto) 0.1 Sodium 134 L Potassium 4.4 Chloride 101 Carbon Dioxide 27 Anion Gap 10.4 BUN 9 Creatinine 0.50 L Estimated Creat Clear 260 Estimated GFR 180 Est GFR ( Amer) 218 Glucose 264 H POC Glucose 269 H 191 H Calcium 8.8 Magnesium 1.6 Total Bilirubin 0.5 AST 33 ALT 28 Alkaline Phosphatase 78 Total Protein 6.4 Albumin 3.4 L Globulin 3.0 Albumin/Globulin Ratio 1.1 07/11/24 07/11/24 11:07 07:14 WBC RBC Hgb 14.3 D Hct MCV MCH MCHC RDW Plt Count MPV Neut % (Auto) Lymph % (Auto) [place] % (Auto) Eos % (Auto) Baso % (Auto) Neut # (Auto) Lymph # (Auto) [place] # (Auto) Eos # (Auto) Baso # (Auto) Sodium Potassium 4.1 Chloride Carbon Dioxide Anion Gap 11.1 BUN Creatinine Estimated Creat Clear Estimated GFR Est GFR ( Amer) Glucose POC Glucose 287 H Calcium Magnesium Total Bilirubin AST ALT Alkaline Phosphatase Total Protein Albumin Globulin Albumin/Globulin Ratio Preliminary micro results at discharge 07/08/24 12:44 Abscess Culture - Preliminary Rectum NO GROWTH AFTER 72 HOURS 07/08/24 10:06 Blood Culture - Preliminary Blood NO GROWTH AFTER 48 HOURS 07/08/24 09:59 Blood Culture - Preliminary Blood NO GROWTH AFTER 48 HOURS DS: Diagnosis Discharge Diagnosis (1) Abscess, perirectal: Status: Acute Code(s): K61.1 - Rectal abscess (2) Sepsis: Status: Acute Code(s): A41.9 - Sepsis, unspecified organism (3) Uncontrolled diabetes mellitus: Status: Acute Meds Home Medications and Allergies Home Medications ?Medication ?Instructions ?Recorded ?Confirmed ?Type metformin 500 mg tablet 1,000 mg PO BIDWMEAL 07/08/24 07/08/24 History amoxicillin 500 mg-potassium 1 tab PO TID 7 days #21 tabs 07/12/24 Rx clavulanate 125 mg tablet (Augmentin) blood-gluc meter-wrist BP mntr #1 ea 07/12/24 Rx (2Tek Glucose/Blood Pressure kit) insulin glargine 100 unit/mL (3 45 unit (0.45 mL) SQ HS 30 days 07/12/24 Rx mL) subcutaneous pen (Lantus #13.5 mL Solostar U-100 Insulin) oxycodone-acetaminophen 5 mg-325 1 tab PO Q4HP PRN Moderate Pain 07/12/24 Rx mg tablet (4-6) 3 days #18 tabs New Prescriptions to Start Prescriptions: amoxicillin-pot clavulanate [Augmentin] Nic Joaquin blood-gluc meter-wrist BP mntr [2Tek Glucose/Blood Pressure] Nic Joaquin insulin glargine [Lantus Solostar U-100 Insulin] Nic Joaquin oxycodone-acetaminophen Nic Joaquin Allergies Allergy/AdvReac Type Severity Reaction Status Date / Time No Known Allergies Allergy Verified 07/06/24 09:51 Discharge Plan Disposition Patient Disposition: Home, Self-Care Condition: Fair Discharge Order Discharge Orders: Discharge Order (Routine); Ordered 07/12/24 Ordered By: Nic Joaquin Follow up Plan Follow up with: Ricardo Grant MD [Staff Physician] - Enter time for follow up Gaurav Sigala DO [Staff Physician] - 07/19/24 11:00 am Prescriptions/Medication Reconciliation: New oxycodone-acetaminophen 5-325 mg Tablet 1 tab PO Q4HP PRN (Reason: Moderate Pain (4-6)) 3 Days Qty: 18 0RF insulin glargine [Lantus Solostar U-100 Insulin] 100 unit/mL (3 mL) Insulin Pen 45 unit SQ HS 30 Days Qty: 13.5 0RF (DME) 2Tek Glucose/Blood Pressure Kit See Rx Instructions .Route Qty: 1 0RF Rx Instructions: As directed amoxicillin-pot clavulanate [Augmentin] 500-125 mg tablet 1 tab PO TID 7 Days Qty: 21 0RF Continued metformin 500 mg tablet 1,000 mg PO BIDWMEAL Discontinued sulfamethoxazole-trimethoprim [Bactrim DS] 800-160 mg tablet 1 tab PO Q12H Qty: 20 0RF Rx Instructions: STARTED 07/06/24, FOR 10 DAYS. Problem Reconciliation Problems Reviewed?: Yes Patient Discharge Instructions Patient Instructions: Carbohydrate-Counting Diet, DI for Anal Abscess, DI for Anal Fistula, Diabetes Diet Label Reading Tips Print Language: Setswana Providers Primary Care Provider: Provider,Referral Admit Provider: Nic Joaquin Attending Provider: Nic Joaquin
[2024-07-12 08:54] LABS: Vancomycin,Trough 10.9 ug/mL (5.0-10.0)
--- NOTE | 2024-07-12 09:32 | HMH.PHAINT1 ---
Pharmacy Intervention Comments: COUNSELED PATIENT AND FAMILY ON NEW MEDICATIONS WELL WHAT MEDICATIONS TO STOP TAKING PRIOR TO DISCHARGE. PATIENT AND FAMILY VERBALIZED UNDERSTANDING.
--- NOTE | 2024-07-12 09:52 | PC.NURSE ---
educated patients on fabiola anal wound care and dressing changes. instructed to change dressing BID per MD. dressing change performed with at bedside. demonstrated understanding.
--- NOTE | 2024-07-14 10:25 | SW/DCPLANNER ---
Phoned patient x2. Left message both times. Lalo Black
== END 2024-07-12 09:47 | disposition home or self-care (01) | DRG 854 ==
LOC: ER 11:28 → OR 12:02 → 2ND 13:55
PROVIDERS: Surgery; Admitting Provider Student in an Organized Health Care Education/Training Program; Emergency Provider Student in an Organized Health Care Education/Training Program; Visit Provider Student in an Organized Health Care Education/Training Program
PROC: 0KDM0ZZ Extraction of Perineum Muscle, Open Approach (ICD-10-PCS; CPT 56405; principal; 2024-07-08 12:30)
DX: A41.9 Sepsis, unspecified organism (principal); K61.1 Rectal abscess; E11.628 Type 2 diabetes mellitus with other skin complications; B96.89 Other specified bacterial agents as the cause of diseases classified elsewhere; E11.65 Type 2 diabetes mellitus with hyperglycemia; Z79.84 Long term (current) use of oral hypoglycemic drugs; Z87.891 Personal history of nicotine dependence; Z79.4 Long term (current) use of insulin; Z79.85 Long-term (current) use of injectable non-insulin antidiabetic drugs; Z79.899 Other long term (current) drug therapy; F10.21 Alcohol dependence, in remission; F19.11 Other psychoactive substance abuse, in remission
CPT/HCPCS: 36415; 74177; 76705; 80053; 80202; 82947; 82962; 83036; 83735; 85007; 85025; 85610; 86140; 86803; 87040; 87070; 87075; 87077; 87205; 87389; 96374; 99285; J0295; J0736; J1100; J1171; J1650; J2250; J2270; J2405; J2543; J2550; J3010; J3370; J3372; J3475; Q9967

== ENCOUNTER 2024-08-01 09:45 | Outpatient (CLI) | payer BC, SELFPAY ==
[2024-08-01 12:35] LABS: Microscopic, Urine URINE MICROSCOPIC (MICROSCOPIC)
[2024-08-01 12:56] LABS: Appearance,Urine CLEAR (Clear); Bilirubin,Urine Negative (Negative); Blood, Urine Negative (Negative); Color,Urine YELLOW (Yellow); Glucose,Urine (UA) 3+ (Negative); Ketones,Urine Negative (Negative); Leukocyte Esterase,Urine Negative (Negative); Nitrate,Urine Negative (Negative); PH,Urine 5.5 (5.0-8.5); Protein,Urine Negative (Negative); Specific Gravity, Urine 1.025 (1.005-1.030); Urobilinogen,Urine 0.2 EU/dl (0.2)
[2024-08-01 13:08] LABS: Microalbumin/Creatinine Ratio 31.5
[2024-08-01 13:09] LABS: Creatinine,Urine Random 51 mg/dL (Not Estab.)
== END 2024-08-01 23:59 | disposition home or self-care (01) ==
LOC: LAB.DROPOF 08-02 10:02
PROVIDERS: PCP Nurse Practitioner Family; Visit Provider Nurse Practitioner Family
DX: E11.9 Type 2 diabetes mellitus without complications (principal)
CPT/HCPCS: 81001; 82043; 82570; 87086

== ENCOUNTER 2024-09-09 12:43 | Outpatient (CLI) | payer OTHER, SELFPAY ==
--- NOTE | 2024-09-09 | US_ITS ---
FINAL REPORT CLINICAL HISTORY: previous smoker, bilateral claudication, bilateral rest pain, bilateral weak pulses. COMPARISON: None FINDINGS: LOWER EXTREMITY SEGMENTAL PRESSURE MEASUREMENTS FINDINGS: Pressure indices are as follows: RIGHT LOWER EXTREMITY: Thigh: 1.09 Calf: 1.13 Ankle, posterior tibial artery: 1.20 Ankle, dorsalis pedis: 1.15 Toe: 1.00 DEVON: 1.20 Comments: Within normal limits LEFT LOWER EXTREMITY: Thigh: 1.05 Calf: 1.15 Ankle, posterior tibial artery: 1.21 Ankle, dorsalis pedis: 1.19 Toe: 1.12 DEVON: 1.21 Comments: Within normal limits IMPRESSION: No evidence of peripheral vascular disease in the bilateral lower extremities. Reviewed, Interpreted and Dictated by Rochelle Mora MD Transcribed by Belen Jacobo Authenticated and [facility]
== END 2024-09-09 23:59 | disposition home or self-care (01) ==
LOC: RT 12:43
PROVIDERS: PCP Internal Medicine; Visit Provider Nurse Practitioner
DX: R09.89 Other specified symptoms and signs involving the circulatory and respiratory systems (principal)
CPT/HCPCS: 93923

== ENCOUNTER 2024-10-12 10:03 | Emergency (ER) | payer OTHER, SELFPAY ==
[2024-10-12] VITALS (9 sets, daily range): BP systolic 104–131; BP diastolic 60–91; PULSE 66–103; RESP 14–18; TEMP 36.6–36.7; O2SAT 96–98; BMI 29.0
--- NOTE | 2024-10-12 10:09 | ECG_ITS ---
APPROVED REPORT Exam: Resting ECG HR:100 bpm ECG Measurements Heart Rate 100 AXES MI 134 P 71 QRSd 93 QRS 18 QT 325 T 49 QTc 382 Conclusion Sinus tachycardia Electronically signed by : SARY HOLMAN, 10/13/2024 07:18:43
--- NOTE | 2024-10-12 10:21 | XR_ITS ---
FINAL REPORT CLINICAL HISTORY: CP to right shoulder COMPARISON: None FINDINGS: A portable view of the chest was obtained. Cardiac and mediastinal silhouettes are within normal limits. The lungs are clear. There is no pleural effusion or pneumothorax. IMPRESSION: No acute process on this portable exam. Reviewed, Interpreted and Dictated by Di Rivas MD Transcribed by Grecia Christian Authenticated and [facility]
[2024-10-12] MEDS: ASPIRIN 81MG CHEWABLE TABLET 324 MG PO (10:26)
[2024-10-12 10:28] LABS: Basophils # 0.1 K/mm3 (0-0.2); Basophils % 0.5 % (0.1-2.0); Eosinophils # 0.4 Kmm3 (0.0-0.4); Eosinophils % 3.6 % (0.1-12.0); Hematocrit 50.1 % (42.0-52.0); Hemoglobin 17.3 g/dL (14.1-18.0); Lymphocytes # 0.4 K/mm3 (0.7-4.5); Lymphocytes % 3.9 % (10-50); Mean Corpuscular HGB Conc 34.5 g/dL (31.8-35.4); Mean Corpuscular Hemoglobin 28.4 pg (27.0-31.2); Mean Corpuscular Volume 82.3 fl (80-94); Mean Platelet Volume 9.9 fl (7.4-10.4); Monocytes # 0.6 K/mm3 (0.1-1.0); Neutrophils # 8.4 K/mm3 (1.8-7.8); Neutrophils % 85.6 % (37.0-80.0); Nucleated Red Blood Cells # 0 10^3/uL; Nucleated Red Blood Cells % 0 %; Platelet Count 158 K/mm3 (142-424); Red Blood Count 6.09 M/mm3 (4.60-6.20); Red Cell Distribution Width 12.4 % (11.5-17.5); White Blood Count 9.8 K/mm3 (4.8-10.8)
[2024-10-12 10:30] LABS: Lactate Venous 1.7 mmol/L (0.4-2.0); VBG Base Excess -0.5 mmol/L (-2.4-2.3); VBG HCO3 25.5 mmol/L (23-30); VBG Oxygen Saturation 42.4 % (50-70); VBG PCO2 49.8 mmol/L (35-51); VBG PH 7.33 mmol/L (7.31-7.41); VBG PO2 23.7 mmol/L (28-40)
[2024-10-12 10:30] LABS: MANUAL DIFFERENTIAL MANUAL DIFFERENTIAL (MANUAL DIFF)
[2024-10-12 10:35] LABS: Alanine Aminotransferase 42 U/L (12-78); Albumin Level 4.8 g/dl (3.5-5.0); Albumin/Globulin Ratio 1.2 (1.1-1.8); Alkaline Phosphatase 63 U/L (38-126); Anion Gap 10.6 mEq/L (5-15); Aspartate Amino Transferase 71 U/L (17-59); Bilirubin,Total 2.4 mg/dl (0.2-1.3); Blood Urea Nitrogen 12 mg/dl (9-20); Calcium 9.4 mg/dl (8.4-10.2); Carbon Dioxide 30 mmol/L (22.0-30.0); Chloride 105 mmol/L (98-107); Creatinine Clearance Estimated 219 mL/min (50-200); Estimated Glomerular Filt Rate 146 ml/min (>60); GFR (African American) 176 ML/MIN (>60); Glucose 130 mg/dl (74-100); Lipase 94 U/L (23-300); Potassium 4.6 mmoL/L (3.5-5.1); Sodium 141 mmol/L (136-145); Total Protein,Serum 8.8 g/dl (6.3-8.2)
[2024-10-12 10:36] LABS: Activated Partial Thrombo Time 26.4 seconds (22.8-30.6); INR 0.92 (0.9-1.1); Prothrombin Time 10.4 seconds (10.1-12.5)
[2024-10-12 10:46] LABS: D-Dimer 0.88 ug/mL (0.0-0.5)
[2024-10-12 10:48] LABS: Lymphocytes % 7 % (10-50); Monocytes % 3 % (2-9); Neutrophils % 90 % (42-76); Platelet Estimate Normal; RBC Morphology Normal; Total Cells Counted 100; Troponin I < 0.01 ng/ml (0.00-0.034)
--- NOTE | 2024-10-12 10:57 | ED_ITS ---
Discharge Plan Disposition Patient Disposition: Home, Self-Care Chief Complaint: Chest Pain Prescriptions Prescriptions: No Action insulin glargine [Lantus Solostar U-100 Insulin] 100 unit/mL (3 mL) insulin pen 45 unit SQ HS 30 Days Qty: 15 0RF nystatin 100,000 unit/gram powder 1 applic topical TID Qty: 30 0RF semaglutide 0.25 mg or 0.5 mg (2 mg/3 mL) pen injector 0RF Jardiance 25 mg tablet 25 mg PO DAILY Qty: 30 2RF duloxetine 40 mg capsule,delayed release(DR/EC) 40 mg PO BID Qty: 60 2RF metformin 1,000 mg tablet 1,000 mg PO BID Qty: 180 3RF gabapentin 800 mg tablet 800 mg PO TID Qty: 90 0RF semaglutide 0.25 mg or 0.5 mg (2 mg/3 mL) pen injector 0.5 mg SQ WEEKLY Qty: 3 0RF Rx Instructions: for 4 weeks; then increase to 0.5 mg every week (DME) 2Tek Glucose/Blood Pressure Kit See Rx Instructions .Route Qty: 1 0RF Rx Instructions: As directed Referrals Follow up/Referrals: Gaurav Sigala DO [Primary Care Provider] - See instructions Gaurav Correia MD [Staff Physician] - See instructions Activity Restrictions/Add. Instructions Additional Instructions/Restrictions: Call your family doctor to establish care for this visit to the emergency department and schedule follow-up within 48 hours to ensure improvement. If you have any worsening of your condition or any other concerning signs or symptoms, return to the emergency department or your primary care doctor for further evaluation. Also call cardiology to schedule follow-up appointment. Heart pain that is not a heart attack can be missed on the labs and EKG, but would be found on further workup including stress test. Clinical Impressions Clinical Impression: Chest pain Print Language Print Language: Armenian Discharge ED Provider: Wale Jacques General Adult HPI General Chief complaint: Chest Pain Stated complaint: chest pain Time Seen by Provider: 10/12/24 10:20 Mode of Arrival: Ambulatory Source of Information: Patient Description of Symptoms (Recalled from ER Triage Doc. by RN): patient states around 9am he began having sudden constant substernal chest pain that radiates to his right arm History of Present Illness HPI narrative: Please note that above description of symptoms, in this electronic medical record under categorization of recalled from ER triage doctor by RN are reflective of an initial nursing assessment, however, is not reflective of my full history and physical exam that was personally taken and clarified. Consequentially, this preceding description of symptoms, which may include the patient's categorized chief complaint in the EMR, do not reflect my personal clinical impression, and the ultimate description of history of present illness and patient stated complaints should be deferred to this section of the note. Unless stated otherwise or congruent with this section of the note, additional signs, symptoms, or incongruence should be interpreted as inaccurate with my clinical impression. Related Data Previous Rx's ?Medication ?Instructions ?Recorded blood-gluc meter-wrist BP mntr #1 ea 07/12/24 (2Tek Glucose/Blood Pressure kit) insulin glargine 100 unit/mL (3 45 unit (0.45 mL) SQ HS 30 days 08/01/24 mL) subcutaneous pen (Lantus #15 mL Solostar U-100 Insulin) empagliflozin 25 mg tablet 25 mg PO DAILY #30 tabs 08/18/24 (Jardiance) nystatin 100,000 unit/gram topical 1 applic topical TID #30 grams 08/23/24 powder duloxetine 40 mg capsule,delayed 40 mg PO BID #60 caps 09/12/24 release metformin 1,000 mg tablet 1,000 mg PO BID #180 tabs 09/20/24 gabapentin 800 mg tablet 800 mg PO TID #90 tabs 09/28/24 semaglutide 0.25 mg or 0.5 mg (2 0.5 mg (0.736 mL) SQ WEEKLY #3 mL 10/07/24 mg/3 mL) subcutaneous pen injector Allergies Allergy/AdvReac Type Severity Reaction Status Date / Time No Known Allergies Allergy Verified 09/22/24 09:06 [facility] Disclaimer: The information contained in this section may have been updated after the patient was seen, as this information can be updated by other users. 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 Diabetes mellitus Surgical History Status post incision and drainage Social History (Reviewed 09/22/24 @ 09:08 by BINU Ellsworth Smoking Status: Never smoker alcohol intake: former substance use type: denies use current occupational status: employed Travel in the last 8 weeks: None adopted: No caregiver/support person: No foster care: No household members: spouse and children Have you lived/traveled outside US in past 30 days?: No Contact w/someone who lives/traveled outside US past 30 days?: No Exposure to someone with infectious disease in past 14 days?: No Do you have a fever (greater than 100.4 F or 38 C)?: No Have you tested positive for COVID-19: No Exposed to someone with COVID-19 in past 14 days?: No Do you have a sore throat?: No Do you have a cough?: No Do you have any weakness?: No Do you have any diarrhea?: No Are you experiencing any unusual bleeding?: No Do you have any muscle aches/pain?: No Do you have any abdominal pain?: No Are you experiencing loss of taste or smell?: No Other Medical History Have you received the Flu Vaccine for this season: No Have you received the Pneumonia Vaccine: No ROS Obtained: Yes All systems reviewed & no additional complaints except as documented Physical Exam General General appearance: alert Head Head exam: atraumatic and normocephalic Eye Eye exam: Present normal appearance, PERRL and EOMI Neck Neck exam: Present normal inspection, full ROM and trachea midline Respiratory Respiratory exam: Absent respiratory distress, wheezes, stridor, accessory muscle use or prolonged expiratory phase Cardiovascular Cardiovascular exam: Present other (Pulses equal symmetric in upper and lower extremities) Abdominal Exam Abdominal exam: Present soft; Absent distention, tenderness or pulsatile mass Extremities Exam Extremities exam: Absent edema Neurological Exam Neurological exam: Present alert, oriented X3 and CN II-XII intact; Absent motor sensory deficit Skin Skin exam: Present warm and dry; Absent diaphoresis or erythema Medical Decision Making Medical Records Medical records reviewed: Yes I reviewed the patient's medical records. Screening: Per USPSTF and CDC recommendations, given the prevalence of disease in our region, it is our hospital?s policy to screen for HIV and viral Hepatitis for all patients aged 18 and over and those with ongoing risk factors. Jeremy Inquiry Pt receiving controlled substance: No Jeremy was queried for this patient: No Vital Signs: 10/12/24 10:06 10/12/24 10:10 10/12/24 10:11 Temperature 98 F 98 F Temperature Source Oral Oral Pulse Rate 101 H 101 H Pulse Rate [Right Radial] 101 H Respiratory Rate 18 18 Blood Pressure 131/91 H Blood Pressure [Right Arm] 131/91 H Blood Pressure Mean [Right Arm] 104 Blood Pressure Source Automatic Cuff Blood Pressure Source [Right Arm] Automatic Cuff Blood Pressure Position Supine Blood Pressure Position [Right Arm] Supine 02 Sat by Pulse Oximetry 98 98 Oxygen Delivery Method Room Air Room Air 10/12/24 10:30 10/12/24 11:00 10/12/24 11:30 Temperature Temperature Source Pulse Rate 98 H 98 H 98 H Pulse Rate [Right Radial] Respiratory Rate 17 17 17 Blood Pressure 124/89 123/85 110/68 Blood Pressure [Right Arm] Blood Pressure Mean [Right Arm] Blood Pressure Source Blood Pressure Source [Right Arm] Blood Pressure Position Blood Pressure Position [Right Arm] 02 Sat by Pulse Oximetry 97 97 96 Oxygen Delivery Method Room Air Room Air Room Air 10/12/24 12:00 Temperature Temperature Source Pulse Rate 103 H Pulse Rate [Right Radial] Respiratory Rate 18 Blood Pressure 109/76 L Blood Pressure [Right Arm] Blood Pressure Mean [Right Arm] Blood Pressure Source Blood Pressure Source [Right Arm] Blood Pressure Position Blood Pressure Position [Right Arm] 02 Sat by Pulse Oximetry 97 Oxygen Delivery Method Lab Data Lab Results 10/12/24 10:12: WBC 9.8, RBC 6.09, Hgb 17.3, Hct 50.1, MCV 82.3, MCH 28.4, MCHC 34.5, RDW 12.4, Plt Count 158, MPV 9.9, Neut % (Auto) 85.6 H, Lymph % (Auto) 3.9 L, [place] % (Auto) 6.0, Eos % (Auto) 3.6, Baso % (Auto) 0.5, Neut # (Auto) 8.4 H, Lymph # (Auto) 0.4 L, [place] # (Auto) 0.6, Eos # (Auto) 0.4, Baso # (Auto) 0.1, Total Counted 100, Neutrophils % (Manual) 90 H, Lymphocytes % (Manual) 7 L, Monocytes % (Manual) 3, Platelet Estimate Normal, RBC Morphology Normal, PT 10.4, INR 0.92, APTT 26.4, D-Dimer 0.88 H, Sodium 141, Potassium 4.6, Chloride 105, Carbon Dioxide 30, Anion Gap 10.6, BUN 12, Creatinine 0.60 L, Estimated Creat Clear 219, Estimated GFR 146, Est GFR ( Amer) 176, Glucose 130 H, Calcium 9.4, Total Bilirubin 2.4 H, AST 71 H, ALT 42, Alkaline Phosphatase 63, Troponin I < 0.01, Total Protein 8.8 H D, Albumin 4.8, Globulin 4.0 H, Albumin/Globulin Ratio 1.2, Lipase 94 10/12/24 10:22: VBG pH 7.33, VBG pCO2 49.8, VBG pO2 23.7 L, VBG HCO3 25.5, VBG Total CO2 27.0, VBG O2 Saturation 42.4 L, VBG Base Excess -0.5, VBG Lactic Acid 1.7 10/12/24 12:25: Troponin I < 0.01 10/12/24 10:12 10/12/24 10:12 Orders (Tests/Meds): ED MEDICATIONS Generic Name Dose Route Start Last Admin Trade Name Freq PRN Reason Stop Dose Admin Sodium Chloride 10 ml 10/12/24 12:37 10/12/24 12:38 Sodium Chloride 0.9% 10ml Syr (Rad Only) IV 11/11/24 12:36 10 ml NEEDED PRN Administration Maintain IV Site Discontinued Medications Generic Name Dose Route Start Last Admin Trade Name Freq PRN Reason Stop Dose Admin Aspirin 324 mg 10/12/24 10:21 10/12/24 10:26 Aspirin 81mg Chewable Tablet PO 10/12/24 10:22 324 mg ONCE ONE Administration Sodium Chloride 1,000 mls @ 999 mls/hr 10/12/24 10:56 10/12/24 11:02 Sod Chlor 0.9% 1000ml Bag IV 10/12/24 11:56 999 mls/hr .Q1H1M ONE Administration Iopamidol 70 ml 10/12/24 12:37 10/12/24 12:38 Iopamidol-370 (76%);100ml Bottle IV 10/12/24 12:38 70 ml ONCE ONE Administration Metoclopramide HCl 10 mg 10/12/24 10:56 10/12/24 11:02 Metoclopramide Hcl 10mg/2ml Vial IVP 10/12/24 10:57 10 mg ONCE ONE Administration Sodium Chloride 50 ml 10/12/24 12:37 10/12/24 12:38 0.9 % Sodium Chloride 50 Ml Vial IV 10/12/24 12:38 50 ml ONCE ONE Administration ORDERS Category Date Time Status CT angio chest - dissection Stat Cat Scan 10/12/24 12:13 Completed XR chest portable Stat Exams 10/12/24 10:21 Completed Complete Blood Count Auto Diff Stat Lab 10/12/24 10:12 Completed Comprehensive Metabolic Panel Stat Lab 10/12/24 10:12 Completed D-Dimer Stat Lab 10/12/24 10:12 Completed Lipase Stat Lab 10/12/24 10:12 Completed PT INR [Prothrombin Time INR] Stat Lab 10/12/24 10:12 Completed PTT [Activated Partial Thrombo Time] Stat Lab 10/12/24 10:12 Completed Troponin I Q3H Lab 10/12/24 12:25 Completed Troponin I Q3H Lab 10/12/24 16:30 Ordered Troponin I Stat Lab 10/12/24 10:12 Completed Venous Blood Gas Stat RT 10/12/24 10:22 Completed HEART Score History (anamnesis): Moderately suspicious ECG: Normal Age: 45-65 years Risk factors: 3 or more risk factors Troponin: </= normal limit HEART Score: 4 Medical Decision Narrative: 44-year-old male presenting with chest pain. He has a history of hypertension, hyperlipidemia, diabetes with neuropathy, PAD, drug and alcohol abuse currently in remission complicated by multiple episodes of pancreatitis in the past. States that earlier today, 10/12 about an hour prior to arrival he started having substernal burning pain that radiated to his right shoulder. He has had substernal pains before given his diabetes, dyspepsia, but new and that it felt higher than usual and it has never radiated to the right shoulder prior to this. States he had some mild shortness of breath at the time, no other associated symptoms. No neurologic deficits, syncope, nausea, vomiting, diaphoresis. No back pain, no radiation to the jaw. History was obtained via conversation with patient. On arrival, patient hemodynamically stable, alert, oriented x4, appropriate, GCS 15, moving all extremities spontaneously, pupils equal and reactive to light. Full physical exam performed and significant for 44-year-old male who is in no acute distress. Speaking full sentences. Heart lungs are clear. No murmurs gallops or rubs. No lower extremity edema, pulses equal and symmetric. Abdomen soft, nontender, nondistended. Differential includes PUD, gastritis, dyspepsia, pancreatitis, microvascular coronary artery disease, CHF, ACS, DC, coronary artery dissection, pneumothorax, PE, dissection, pericarditis, myocarditis, pneumothorax, aortic aneurysm, pneumonia, bronchitis, among others. Patient placed on continuous cardiac monitoring and continuous pulse ox with initial blood pressure 131/91, heart rate 101, saturation 98% on room air. Independent interpretation of EKG shows sinus tachycardia 100 bpm with OK 134, QRS 93, QTc 382. No acute ischemic change. Normal axis. Patient was given Reglan, fluids, full dose aspirin for symptomatic management and correction of underlying abnormalities. Workup independently interpreted and significant for nonactionable CBC, PTT and INR normal, but dimer elevated at 0.9. Patient also has mildly elevated bilirubin at 2.4 and AST elevated at 71, normal ALT and alkaline phosphatase. Troponin and lipase negative. On independent interpretation of imaging, patient has no acute intrathoracic process on chest x-ray. See radiology read for full review of final results. Patient was placed in observation beginning at 10:30 AM in order to find evolving DC with delta troponin as well as PE with CT and determine need for admission versus home- going. The patient was provided serial exams, cardiac monitoring while awaiting results. Given elevated dimer and persistent tachycardia, CT of the chest was ordered. Independent interpretation of results demonstrated no PE, no dissection, no pneumothorax or other acute intrathoracic process. On reevaluation, patient resting comfortably, asleep and has no acute complaints. At this time, I feel patient is appropriate for discharge. Total observation time 4 hours. Unsure what is causing patient's mildly elevated bilirubin and AST, but recommended he follow-up with his family doctor. Given patient presentation, workup, history, this most likely represents idiopathic chest pain. It was discussed with patient that true cardiac chest pain that is not an DC can be overlooked in the emergency department. Because he is currently asymptomatic, I feel he is appropriate for home-going with heart score 4. Because patient at baseline without signs or symptoms of clinical decompensation, deemed appropriate for discharge. Results were relayed to patient who voiced understanding and were agreeable to outpatient management and follow up. I discussed my clinical impression with patient and answered all questions. At this time, the evidence for any other entities in the differential is insufficient to warrant any further testing or ED observation. This was explained as well. Advisory was given that persistent or worsening symptoms require further evaluation. I confirmed the understanding of this discussion. Production Control Manager disclaimer Much of this encounter note is an electronic employment instructional associate spoken language to printed text. Electronic employment instructional associate of the spoken language may permit errors. Although I have reviewed the note, some errors may still exist. Critical Care Critical Care Time Critical Care Time: No
[2024-10-12] MEDS: 0.9 % SODIUM CHLORIDE 1000ML 1,000 ML 999 ML IV (11:02)
[2024-10-12] MEDS: METOCLOPRAMIDE HCL 10MG/2ML VIAL 10 MG IVP (11:02)
--- NOTE | 2024-10-12 12:13 | CT_ITS ---
FINAL REPORT TECHNIQUE: Axial imaging of the chest is obtained after the administration of contrast. 3-D MIP reformatted images were also obtained and reviewed per PE protocol. This study was performed with techniques to keep radiation doses as low as reasonably achievable (ALARA). Individualized dose reduction techniques using automated exposure control or adjustment of mA and/or kV according to the patient's size were employed. CLINICAL HISTORY: tachycardia, substernal CP to R arm, dimer FINDINGS: The pulmonary arteries are well filled. There is no evidence of pulmonary embolus. There is no aortic dissection. Heart size is normal. There is no mediastinal, hilar, or axillary lymphadenopathy. The lungs are clear. There is no pleural or pericardial effusion. Limited evaluation of the upper abdomen demonstrate cholelithiasis. No acute osseous abnormality. IMPRESSION: No evidence of pulmonary embolism or aortic dissection. Reviewed, Interpreted and Dictated by Di Rivas MD Transcribed by Swati Navas Authenticated and [facility]
[2024-10-12] MEDS: SODIUM CHLORIDE 0.9% 10ML SYR (RAD ONLY) 10 ML IV (12:38)
[2024-10-12] MEDS: IOPAMIDOL-370 (76%);100ML BOTTLE 70 ML IV (12:38)
[2024-10-12] MEDS: 0.9 % SODIUM CHLORIDE 50 ML VIAL IV (12:38)
[2024-10-12 12:53] LABS: Troponin I < 0.01 ng/ml (0.00-0.034)
--- NOTE | 2024-10-12 13:36 | PC.NURSE ---
I spoke with Yue in radiology, she states that the pts CT is being read at this time.
== END 2024-10-12 14:35 | disposition home or self-care (01) ==
PROVIDERS: Emergency Provider Emergency Medicine; PCP Internal Medicine
DX: R07.89 Other chest pain (principal); R00.0 Tachycardia, unspecified
CPT/HCPCS: 71045; 71275; 80053; 82803; 83690; 84484; 85007; 85025; 85027; 85378; 85610; 85730; 93005; 96361; 96374; 99285; J2765; J7030; Q9967

== ENCOUNTER 2024-11-18 08:04 | Day surgery (SDC) | payer OTHER, SELFPAY ==
[2024-11-17 10:22] VITALS: BMI 31.1
--- NOTE | 2024-11-18 06:24 | EXP.GEN.HP ---
HPI HPI HPI: Patient is a 44-year-old male whom I had recently seen for perianal abscess which had completely healed. He had never had prior colonoscopy. Given this issue and his age I recommended initial screening colonoscopy. [facility] Disclaimer: The information contained in this section may have been updated after the patient was seen, as this information can be updated by other users. Medical History Alcohol abuse Drug abuse in remission Diabetes mellitus Surgical History (Updated 11/17/24 @ 15:38 by Pari Bynum RN) S/P ORIF (open reduction internal fixation) fracture Status post incision and drainage Family History (Updated 11/17/24 @ 15:38 by Pari Bynum RN) No significant family history Social History Smoking Status: Never smoker alcohol intake: former substance use type: denies use current occupational status: employed Travel in the last 8 weeks?: None adopted: No caregiver/support person: No foster care: No household members: spouse and children Have you lived/traveled outside US in past 30 days?: No Contact w/someone who lives/traveled outside US past 30 days?: No Exposure to someone with infectious disease in past 14 days?: No Do you have a fever (greater than 100.4 F or 38 C)?: No Have you tested positive for COVID-19?: No Exposed to someone with COVID-19 in past 14 days?: No Do you have a sore throat?: No Do you have a cough?: No Do you have shortness of breath?: No Do you have a headache?: No Do you have any weakness?: No Are you experiencing any nausea/vomitting?: No Do you have any diarrhea?: No Are you experiencing any unusual bleeding?: No Do you have any muscle aches/pain?: No Do you have any abdominal pain?: No Are you experiencing loss of taste or smell?: No Other Medical History Have you received the Flu Vaccine for this season: No Have you received the Pneumonia Vaccine: No Meds Home Medications and Allergies Home Medications ?Medication ?Instructions ?Recorded ?Confirmed ?Type duloxetine 40 mg capsule,delayed 40 mg PO BID #60 caps 03/24/25 05/29/25 Rx release metformin 1,000 mg tablet 1,000 mg PO BID #180 tabs 09/20/24 11/17/24 Rx semaglutide 1 mg/dose (4 mg/3 mL) 1 mg (0.75 mL) SQ WEEKLY #3 mL 10/20/24 11/17/24 Rx subcutaneous pen injector (Ozempic) insulin glargine 100 unit/mL (3 45 unit (0.45 mL) SQ HS 30 days 11/01/24 11/17/24 Rx mL) subcutaneous pen (Lantus #15 mL Solostar U-100 Insulin) gabapentin 800 mg tablet 800 mg PO QID #120 tabs 11/02/24 11/17/24 Rx empagliflozin 25 mg tablet See Rx Instructions .Route 11/11/24 11/17/24 Rx (Jardiance) .COMPLEX #30 tabs New Prescriptions to Start Prescriptions: Allergies Allergy/AdvReac Type Severity Reaction Status Date / Time No Known Allergies Allergy Verified 10/20/24 08:27 Exam Data for Last 24 hours I & O for Last 24 hours: Intake & Output 11/15/24 11/16/24 11/17/24 11/18/24 11:59 11:59 11:59 11:59 Weight 230 lb
[2024-11-18 08:30] VITALS: BP 142/81; PULSE 85; RESP 16; TEMP 36.5; O2SAT 98
--- NOTE | 2024-11-18 08:44 | XR_ITS ---
FINAL REPORT CLINICAL HISTORY: recent injury to left rib, pain COMPARISON: 10/14/2024 FINDINGS: The lungs are underinflated. The patient is rotated to the right. The heart size is normal. The mediastinum is normal. There is mild atelectasis at the left lung base. There are no pleural effusions. There is no pneumothorax. There is no osseous abnormality. IMPRESSION: Mild left basilar atelectasis. Reviewed, Interpreted and Dictated by Lan Escamilla MD Transcribed by Belen Jacobo Authenticated and [facility]
[2024-11-18] MEDS: LACTATED RINGERS 1000ML 1,000 ML 50 ML IV (09:00)
--- NOTE | 2024-11-18 09:53 | SUR.PREOP ---
Report called to Aamir SMITH in the ER. Pt transported via w/c per Zach SMITH.
[2024-11-19 15:33] LABS: POC Glucose,Bedside 99 (70-110)
== END 2024-11-18 09:53 | disposition home or self-care (01) ==
LOC: OUTP 08:05
PROVIDERS: PCP Internal Medicine; Visit Provider Surgery
PROC: 0DJD8ZZ Inspection of Lower Intestinal Tract, Via Natural or Artificial Opening Endoscopic (ICD-10-PCS; principal; 2024-11-18 09:30)
DX: Z12.11 Encounter for screening for malignant neoplasm of colon (principal); Z53.9 Procedure and treatment not carried out, unspecified reason; E11.9 Type 2 diabetes mellitus without complications; F10.11 Alcohol abuse, in remission; F12.11 Cannabis abuse, in remission; F14.11 Cocaine abuse, in remission; Z86.19 Personal history of other infectious and parasitic diseases; Z79.899 Other long term (current) drug therapy; Z79.4 Long term (current) use of insulin; Z79.85 Long-term (current) use of injectable non-insulin antidiabetic drugs; Z79.84 Long term (current) use of oral hypoglycemic drugs
CPT/HCPCS: 71045; 82962; J7120

== ENCOUNTER 2024-11-18 09:49 | Emergency (ER) | payer OTHER, SELFPAY ==
[2024-11-18] VITALS (8 sets, daily range): BP systolic 123–146; BP diastolic 80–90; PULSE 83–94; RESP 16; TEMP 36.2–36.5; O2SAT 93–98; BMI 29.0
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
--- NOTE | 2024-11-18 09:59 | ECG_ITS ---
APPROVED REPORT Exam: Resting ECG HR:81 bpm ECG Measurements Heart Rate 81 AXES RI 140 P 74 QRSd 94 QRS 24 QT 364 T 31 QTc 401 Conclusion SINUS RHYTHM NORMAL ECG Electronically signed by : JAVAN HOWARD, 11/19/2024 04:52:47
--- NOTE | 2024-11-18 10:29 | CT_ITS ---
FINAL REPORT TECHNIQUE: Pre-and postcontrast images of the abdomen were performed by computed tomography. Extensive 3-D reconstruction images were performed. A CTA was performed. This study was performed with techniques to keep radiation doses as low as reasonably achievable (ALARA). Individualized dose reduction techniques using automated exposure control or adjustment of mA and/or kV according to the patient''s size were employed. CLINICAL HISTORY: DETENTION, L sided chest wall/flank pain FINDINGS: ABDOMEN: There are nondisplaced fractures of the left 6th and 7th ribs. There is linear atelectasis in the left lung base. No adrenal masses are identified. There is moderate diffuse fatty infiltration of the liver. The gallbladder is distended. There is a small nonobstructing stone in the dependent portion of the gallbladder. The spleen, pancreas, and kidneys are unremarkable. The appendix is normal. The urinary bladder is incompletely distended. CTA: The abdominal aorta is proper caliber. The SMA, celiac axis, and MAGAN are patent. There is no significant stenosis or calcification. The renal arteries are patent bilaterally. IMPRESSION: No evidence of renal vascular hypertension or significant renal artery stenosis. Nondisplaced left 6th and 7th rib fractures. Reviewed, Interpreted and Dictated by Lan Escamilla MD Transcribed by Sonia Camarillo Authenticated and . [facility]
--- NOTE | 2024-11-18 10:30 | CT_ITS ---
FINAL REPORT TECHNIQUE: The patient was injected with IV contrast. Axial images were obtained through the chest in a PE protocol. 3-D reconstruction images were also performed. Individualized dose reduction techniques using automated exposure control or adjustment of the MA and/or KV according to patient's size were employed. CLINICAL HISTORY: SENIOR LIVING, L sided chest wall/flank pain COMPARISON: 10/12/2024 FINDINGS: Mediastinal vasculature is adequately opacified. No pulmonary artery filling defects are identified to suggest PE. There is no aortic dissection. There is no mediastinal mass or adenopathy. The heart size is normal. There is no pericardial or pleural effusion. Linear opacity in both lung bases is consistent with atelectasis, increased from the previous exam. Lateral 6th and 7th nondisplaced left rib fractures are noted. Limited images of the upper abdomen are unremarkable. IMPRESSION: No pulmonary embolus or dissection. Lateral 6 and 7th nondisplaced left rib fractures. Reviewed, Interpreted and Dictated by Lan Escamilla MD Transcribed by Belen Jacobo Authenticated and [facility]
[2024-11-18] MEDS: ONDANSETRON 4MG/2ML VIAL 4 MG IV (10:49)
[2024-11-18] MEDS: MORPHINE 4MG/ML SYRINGE 4 MG IV (10:50)
--- NOTE | 2024-11-18 12:10 | PC.NURSE ---
Labs collected and sent to lab.
[2024-11-18 12:25] LABS: Alanine Aminotransferase 23 U/L (12-78); Albumin/Globulin Ratio 1.4 (1.1-1.8); Alkaline Phosphatase 68 U/L (38-126); Aspartate Amino Transferase 39 U/L (17-59); Bilirubin,Total 3.3 mg/dl (0.2-1.3); Blood Urea Nitrogen 10 mg/dl (9-20); Calcium 8.6 mg/dl (8.4-10.2); Carbon Dioxide 31 mmol/L (22.0-30.0); Chloride 101 mmol/L (98-107); Creatinine Clearance Estimated 263 mL/min (50-200); Estimated Glomerular Filt Rate 180 ml/min (>60); GFR (African American) 218 ML/MIN (>60); Globulin 2.9 g/dL (1.3-3.2); Glucose 76 mg/dl (74-100); Sodium 138 mmol/L (136-145); Total Protein,Serum 6.9 g/dl (6.3-8.2)
[2024-11-18 12:26] LABS: Basophils % 0.5 % (0.1-2.0); Eosinophils # 0.2 Kmm3 (0.0-0.4); Eosinophils % 3.8 % (0.1-12.0); Hematocrit 43.5 % (42.0-52.0); Immature Granulocytes # 0.01 10^3uL; Immature Granulocytes % 0.2 %; Lymphocytes # 1.5 K/mm3 (0.7-4.5); Lymphocytes % 24.8 % (10-50); Mean Corpuscular HGB Conc 34.5 g/dL (31.8-35.4); Mean Corpuscular Hemoglobin 28.3 pg (27.0-31.2); Mean Corpuscular Volume 82.1 fl (80-94); Mean Platelet Volume 9.5 fl (7.4-10.4); Monocytes # 0.6 K/mm3 (0.1-1.0); Monocytes % 10.4 % (1.7-9.3); Neutrophils # 3.7 K/mm3 (1.8-7.8); Neutrophils % 60.3 % (37.0-80.0); Nucleated Red Blood Cells # 0 10^3/uL; Nucleated Red Blood Cells % 0 %; Platelet Count 176 K/mm3 (142-424); Red Cell Distribution Width 12.5 % (11.5-17.5); Red Cell Distribution Width-SD 37.2 fL; White Blood Count 6.1 K/mm3 (4.8-10.8)
[2024-11-18] MEDS: IOPAMIDOL-370 (76%);100ML BOTTLE 75 ML IV (12:55)
[2024-11-18] MEDS: 0.9 % SODIUM CHLORIDE 50 ML VIAL IV (12:55)
[2024-11-18] MEDS: SODIUM CHLORIDE 0.9% 10ML SYR (RAD ONLY) 10 ML IV (12:55)
== END 2024-11-18 14:39 | disposition home or self-care (01) ==
PROVIDERS: Emergency Provider Emergency Medicine; PCP Internal Medicine
DX: S22.42XA Multiple fractures of ribs, left side, initial encounter for closed fracture (principal); R07.9 Chest pain, unspecified; V29.99XA Rider (driver) (passenger) of other motorcycle injured in unspecified traffic accident, initial encounter; Y92.410 Unspecified street and highway as the place of occurrence of the external cause
CPT/HCPCS: 71275; 74174; 80053; 85025; 93005; 96374; 96375; 99285; J2270; J2405; Q9967